=== PATIENT | male | born 1955 | race Caucasian/White ===

== ENCOUNTER → 2016-11-20 | Day surgery (SDC) | payer OTHER ==
[2016-11-17 08:52] VITALS: Ht 172.7 cm; Wt 90.9 kg
[~2016-11-20] VITALS: Ht 172.7 cm; Wt 90.9 kg
[~2016-11-20] MED LIST: ASPI81TA28 PO; ATOR10TA88 PO; GLC/500 PO; LIDOCAINE HCL 2% 2 ML VIAL (20MG/ML) ONE; MIDAZOLAM HCL 1 MG/ML 2ML VIAL ONE; OMEP40CA41 PO; PROPOFOL IV EMULSION 10 MG/ML 20 ML VIAL IV ONE; QUET1TAB34 PO; SODIUM CHLORIDE 0.9% 500ML 500 ML IV ONE
--- NOTE | 2016-11-20 13:03 | Endo History and Physical ---
History & Physical Date of Service: Nov 20, 2016. Chief Complaint: RUQ PAIN, RECTAL BLEEDING Referring Physician: DR. EATON History of Present Illness RUQ pain; rectal bleeding Past Medical History Anxiety, Other, Depression Past Surgical History Hx Cardiac Surgery: No Hx Internal Defibrillator: No Hx Pacemaker: No Hx Abdominal Surgery: Yes (LT/RT INGUINAL HERNIA REPAIR) Hx of Implantable Prosthesis: No Hx Post-Op Nausea and Vomiting: No Hx Cancer Surgery: No Hx Thoracic Surgery: No Hx Orthopedic: No Hx Urinary Tract Surgery: No Family History None Social History Smoking Status: Never Smoker Hx Substance Use: No Hx Alcohol Use: No Allergies Coded Allergies: Molds & Smuts (Verified Allergy, Unknown, ITCHY EYES, 11/20/16) NO KNOWN DRUG ALLERGIES (Verified Allergy, Unknown, ., 11/20/16) Current Medications Reported Home Medications Medications Dose Route/Sig Max Daily Dose Days Date Category Dose Instructions Aspirin Ec (Aspirin) 81 Mg Tab 81 Mg PO DAILY 11/17/16 Reported HAS NOT STARTED MEDICATION YET - GOING TO START FOR HEART HEALTH Prilosec (Omeprazole) 40 Mg Cap 40 Mg PO QAM 11/17/16 Reported Lipitor (Atorvastatin Calcium) 10 Mg Tab 10 Mg PO QAM 11/17/16 Reported Seroquel (Quetiapine Fumarate) 100 Mg Tab 100 Mg PO TID 11/17/16 Reported Glucophage (Metformin Hcl) 500 Mg Tab 500 Mg PO BID 11/17/16 Reported Vital Signs Weight (Kilograms): 90.91 Height (Feet): 5 Height (Inches): 8 Date Time Temp Pulse Resp B/P (MAP) Pulse Ox O2 Delivery O2 Flow Rate FiO2 11/20/16 12:41 36.7 96 18 148/108 (121) 95 Room Air Physical Exam AAOx3 Nls1s2 Lungs CTA Abd soft mild tender rt sided without rebound or guarding Assessment and Plan EGD/colon
--- NOTE | 2016-11-20 13:34 | Discharge Instructions ---
Endoscopy Patient Instructions Date / Procedure(s) Performed Nov 20, 2016. Colonoscopy, EGD Allergy Information Coded Allergies: Molds & Smuts (Verified Allergy, Unknown, ITCHY EYES, 11/20/16) NO KNOWN DRUG ALLERGIES (Verified Allergy, Unknown, ., 11/20/16) Discharge Date / Findings Nov 20, 2016. 1) HH 2) polyp; diverticulosis; hemorrhoid Medication Instructions Stopped Medication(s): METFORMIN LAST DOSE Thursday11/17/16 Restart Stopped Medication(s): Reported Home Medications Medications Dose Route/Sig Max Daily Dose Days Date Category Dose Instructions Aspirin Ec (Aspirin) 81 Mg Tab 81 Mg PO DAILY 11/17/16 Reported HAS NOT STARTED MEDICATION YET - GOING TO START FOR HEART HEALTH Prilosec (Omeprazole) 40 Mg Cap 40 Mg PO QAM 11/17/16 Reported Lipitor (Atorvastatin Calcium) 10 Mg Tab 10 Mg PO QAM 11/17/16 Reported Seroquel (Quetiapine Fumarate) 100 Mg Tab 100 Mg PO TID 11/17/16 Reported Glucophage (Metformin Hcl) 500 Mg Tab 500 Mg PO BID 11/17/16 Reported Reported Home Medications Medications Dose Route/Sig Max Daily Dose Days Date Category Dose Instructions Aspirin Ec (Aspirin) 81 Mg Tab 81 Mg PO DAILY 11/17/16 Reported HAS NOT STARTED MEDICATION YET - GOING TO START FOR HEART HEALTH Prilosec (Omeprazole) 40 Mg Cap 40 Mg PO QAM 11/17/16 Reported Lipitor (Atorvastatin Calcium) 10 Mg Tab 10 Mg PO QAM 11/17/16 Reported Seroquel (Quetiapine Fumarate) 100 Mg Tab 100 Mg PO TID 11/17/16 Reported Glucophage (Metformin Hcl) 500 Mg Tab 500 Mg PO BID 11/17/16 Reported Provider Instructions Activity Restrictions - No exercising or heavy lifting for 24 hours. - Do not drink alcohol the day of the procedure. - Do not drive a car or operate machinery until the day after the procedure. - Do not make any important decisions or sign important papers in 24 hours after the procedure. Following Day: - Return to full activity which may include returning to work/school. Diet Start your diet with liquids and light foods (jello, soup, juice, toast). Then eat your usual diet if not nauseated. Treatment For Common After Affects For mild abdominal pain, bloating, or excessive gas: - Rest - Eat lightly - Lie on right side Follow-Up Information Follow-up with DR. EATON as scheduled Anesthesia Information What You Should Know You have had a procedure that required some medicine to reduce anxiety and discomfort. This treatment is called moderate sedation. After receiving the treatment, you may be sleepy, but you will be able to breathe on your own. The effects of the treatment may last for several hours. Follow these instructions along with Activity/Diet recommendations noted above: * Do NOT do anything where dizziness or clumsiness would be dangerous. * Rest quietly at home today, then you can be up and about tomorrow. * Have a responsible person stay with you the rest of today. * You may have had an I.V. today. If so, you may take the dressing off later today. Recommendations Call your doctor if: * Trouble breathing * Continuous vomiting for more than 24 hours * Temperature above 101 degrees * Severe abdominal pain or bloating * Pain not relieved by pain medicine ordered * There is increased drainage or redness from any incision * A large amount of rectal bleeding greater than 2-3 tablespoons. (If you had a polyp/s removed or have hemorrhoids, a small amount of blood - from the rectum is to be expected.) * You have any unanswered questions or concerns. IN THE EVENT OF A SERIOUS EMERGENCY, GO TO THE NEAREST EMERGENCY ROOM Your discharge instructions were prepared by provider Justo Hernandez. Patient Instructions Signature Page Allen Hernandez Patient (or Guardian) Signature/Date: I have read and understand the instructions given to me by my caregivers. Caregiver/RN/Doctor Signature/Date: The above-named patient and/or guardian has received patient instructions on this date. + Original Patient Signature Page (only) stays with chart. Please make copy for patient.
--- NOTE | 2016-11-20 13:50 | GI REPORT ---
Procedure Date: 11/20/2016 1:07 PM Procedure: Colonoscopy Indications: Screening for colorectal malignant neoplasm, Reprots intermittent painless rectal bleeding Medicines: Propofol per Anesthesia Complications: No immediate complications. Estimated blood loss: Minimal. Estimated Blood Loss: Estimated blood loss was minimal. Procedure: Pre-Anesthesia Assessment: - Prior to the procedure, a History and Physical was performed, and patient medications and allergies were reviewed. The patient's tolerance of previous anesthesia was also reviewed. The risks and benefits of the procedure and the sedation options and risks were discussed with the patient. All questions were answered, and informed consent was obtained. Prior Anticoagulants: The patient has taken no previous anticoagulant or antiplatelet agents. ASA Grade Assessment: III - A patient with severe systemic disease. After reviewing the risks and benefits, the patient was deemed in satisfactory condition to undergo the procedure. After I obtained informed consent, the scope was passed under direct vision. Throughout the procedure, the patient's blood pressure, pulse, and oxygen saturations were monitored continuously. The scope was introduced through the anus and advanced to the terminal ileum, with identification of the appendiceal orifice and IC valve. The colonoscopy was performed without difficulty. The patient tolerated the procedure well. The quality of the bowel preparation was good. Findings: The perianal and digital rectal examinations were normal. Pertinent negatives include normal sphincter tone, no palpable rectal lesions and no anal lesion or abnormality was detected. A 6 mm polyp was found in the transverse colon. The polyp was sessile. The polyp was removed with a cold snare. Resection and retrieval were complete. Estimated blood loss was minimal. Verification of patient identification for the specimen was done by the physician and electro mechanical technician using the patient's name and medical record number. A few small-mouthed diverticula were found in the entire colon. Non-bleeding internal hemorrhoids were found during retroflexion. The hemorrhoids were mild. The terminal ileum appeared normal. Impression: - One 6 mm polyp in the transverse colon, removed with a cold snare. Resected and retrieved. - Diverticulosis in the entire examined colon. - Non-bleeding internal hemorrhoids. - The examined portion of the ileum was normal. Recommendation: - Await pathology results. - Patient has a contact number available for emergencies. The signs and symptoms of potential delayed complications were discussed with the patient. Return to normal activities tomorrow. Written discharge instructions were provided to the patient. - Resume regular diet. - Continue present medications. - Await pathology results. - Repeat colonoscopy for surveillance based on pathology results. - Return to referring physician as previously scheduled. MD Justo Jade MD 11/20/2016 1:49:10 PM This report has been signed electronically. Note Initiated On: 11/20/2016 1:07 PM I attest to the content of the Intraoperative Record and orders documented therein, exceptions below
--- NOTE | 2016-11-20 13:57 | GI REPORT ---
Procedure Date: 11/20/2016 1:08 PM Procedure: Upper GI endoscopy Indications: Abdominal pain in the right upper quadrant Medicines: Propofol per Anesthesia Complications: No immediate complications. Estimated blood loss: Minimal. Estimated Blood Loss: Estimated blood loss was minimal. Procedure: Pre-Anesthesia Assessment: - Prior to the procedure, a History and Physical was performed, and patient medications and allergies were reviewed. The patient's tolerance of previous anesthesia was also reviewed. The risks and benefits of the procedure and the sedation options and risks were discussed with the patient. All questions were answered, and informed consent was obtained. Prior Anticoagulants: The patient has taken no previous anticoagulant or antiplatelet agents. ASA Grade Assessment: III - A patient with severe systemic disease. After reviewing the risks and benefits, the patient was deemed in satisfactory condition to undergo the procedure. After obtaining informed consent, the endoscope was passed under direct vision. Throughout the procedure, the patient's blood pressure, pulse, and oxygen saturations were monitored continuously. The scope was introduced through the mouth, and advanced to the mid-jejunum. The upper GI endoscopy was accomplished without difficulty. The patient tolerated the procedure well. Findings: The examined esophagus was normal. A small hiatus hernia was found. The proximal extent of the gastric folds (end of tubular esophagus) was 41 cm from the incisors. The hiatal narrowing was 43 cm from the incisors. The Z-line was 41 cm from the incisors. The entire examined stomach was normal. The gastric body and gastric antrum were normal. Biopsies were taken with a cold forceps for Helicobacter pylori testing. Verification of patient identification for the specimen was done by the physician and fresh foods technician using the patient's name and medical record number. The 2nd part of the duodenum was normal. Biopsies for histology were taken with a cold forceps for evaluation of celiac disease. Estimated blood loss was minimal. Verification of patient identification for the specimen was done by the physician and fresh foods technician using the patient's name and medical record number. The examined jejunum was normal. Biopsies were taken with a cold forceps for histology. Biopsies were taken with a cold forceps for histology. The cardia and gastric fundus were normal on retroflexion. Retained gastric contents are not identified on this exam. Impression: - Normal esophagus. - Small hiatus hernia. - Normal stomach. - Normal gastric body and antrum. Biopsied. - Normal 2nd part of the duodenum. Biopsied. - Normal examined jejunum. Biopsied. Recommendation: - Discharge patient to home (ambulatory). - Continue present medications. - Consider GB workup if not recently performed MD Justo Jade MD 11/20/2016 1:57:22 PM This report has been signed electronically. Note Initiated On: 11/20/2016 1:08 PM I attest to the content of the Intraoperative Record and orders documented therein, exceptions below
[2016-11-20 14:11] VITALS: BP 122/60; PULSE 83; O2SAT 97
--- NOTE | 2016-11-20 14:34 | Anesthesiology Progress Note ---
Anesthesia Post Op Note Date & Time Nov 20, 2016 at 14:34 Vital Signs Pain Intensity: 5 Vital Signs Past 12 Hours Date Time Temp Pulse Resp B/P (MAP) Pulse Ox O2 Delivery O2 Flow Rate FiO2 11/20/16 14:11 83 20 122/60 (80) 97 Room Air 11/20/16 13:55 88 20 128/92 (104) 98 Room Air 11/20/16 13:39 95 20 137/94 (108) 95 Room Air 11/20/16 12:41 36.7 96 18 148/108 (121) 95 Room Air Notes Mental Status: alert / awake / arousable, participated in evaluation Pt Amnestic to Procedure: Yes Nausea / Vomiting: adequately controlled Pain: adequately controlled Airway Patency, RR, SpO2: stable & adequate BP & HR: stable & adequate Hydration State: stable & adequate Anesthetic Complications: no major complications apparent
== END | disposition home or self-care (01) ==
LOC: C.GI 12:17
PROVIDERS: ATTEND Internal Medicine Gastroenterology
DX: R10.11 Right upper quadrant pain (principal); K62.5 Hemorrhage of anus and rectum; D12.3 Benign neoplasm of transverse colon; K44.9 Diaphragmatic hernia without obstruction or gangrene; K57.30 Diverticulosis of large intestine without perforation or abscess without bleeding; Z79.82 Long term (current) use of aspirin; I10 Essential (primary) hypertension; E78.5 Hyperlipidemia, unspecified; E11.9 Type 2 diabetes mellitus without complications; F41.9 Anxiety disorder, unspecified; Z79.84 Long term (current) use of oral hypoglycemic drugs

== ENCOUNTER → 2017-08-27 | Outpatient (CLI) | payer OTHER ==
[~2017-08-27] MED LIST changes: +ATOR10TA82 PO; -ATOR10TA88 PO; -LIDOCAINE HCL 2% 2 ML VIAL (20MG/ML) ONE; -MIDAZOLAM HCL 1 MG/ML 2ML VIAL ONE; -PROPOFOL IV EMULSION 10 MG/ML 20 ML VIAL IV ONE; -SODIUM CHLORIDE 0.9% 500ML 500 ML IV ONE
--- NOTE | 2017-08-27 14:59 | DIAGNOSTIC IMAGING REPORT ---
CHEST 2 VIEWS ROUTINE CLINICAL HISTORY: DYSPNEA dyspnea COMPARISON STUDY: 10/09/2015 FINDINGS: The bones soft tissues and hemidiaphragms are normal. The cardiomediastinal silhouette is normal. The lungs are clear. The pulmonary vasculature is normal. IMPRESSION: Negative chest. The above report was generated using voice recognition software. It may contain grammatical, syntax or spelling errors. Electronically signed by: Phani Beltran M.D. 08/27/2017 2:58 PM Dictated Date/Time: 08/27/2017 2:57 PM
== END | disposition home or self-care (01) ==
LOC: C.RAD 14:39
PROVIDERS: ATTEND Family Medicine
DX: R06.00 Dyspnea, unspecified (principal)

== ENCOUNTER → 2017-08-27 | Outpatient (CLI) | payer OTHER ==
--- NOTE | 2017-08-28 11:59 | PULMONARY FUNCTION TEST ---
Pre-bronchodilator spirometry is well within normal limits. There was no significant response to bronchodilator, but this should not preclude a therapeutic trial if clinically warranted. Lung volumes or diffusion capacity were not measured. Clinical correlation is needed.
== END | disposition home or self-care (01) ==
LOC: C.RC 13:58
PROVIDERS: ATTEND Family Medicine
DX: R06.00 Dyspnea, unspecified (principal)

== ENCOUNTER 2019-04-07 10:10 | Inpatient (IN) ==
[2019-04-07] MEDS ORDERED: SODIUM CHLORIDE 0.9% 1000ML 1,000 ML IV SCH (11:15)
[2019-04-07 11:29] LABS: Basophils # (auto) 0.06 K/uL (0-0.2); Basophils % (auto) 0.8 %; Eosinophils # (auto) 0.28 K/uL (0-0.5); Eosinophils % (auto) 3.8 %; Hematocrit (blood only) 43.4 % (42-52); Hemoglobin 15.7 g/dL (14.0-18.0); Immature Granulocytes # (auto) 0.04 K/uL (0.00-0.02); Immature Granulocytes % (auto) 0.5 %; Lymphocytes # (auto) 2.09 K/uL (1.2-3.4); Lymphocytes % (auto) 28.7 %; Mean Corpuscular Hemoglobin 32.2 pg (25-34); Mean Corpuscular Hgb Conc 36.2 g/dL (32-36); Mean Corpuscular Volume 88.9 fL (80-100); Mean Platelet Volume 10.6 fL (7.4-10.4); Monocytes # (auto) 0.48 K/uL (0.11-0.59); Monocytes % (auto) 6.6 %; Neutrophils # (auto) 4.34 K/uL (1.4-6.5); Neutrophils % (auto) 59.6 %; Platelet Count 216 K/uL (130-400); RDW Coefficient of Variation 13.2 % (11.5-14.5); RDW Standard Deviation 42.5 fL (36.4-46.3); Red Blood Count 4.88 M/uL (4.7-6.1); White Blood Count 7.29 K/uL (4.8-10.8)
--- NOTE | 2019-04-07 11:32 | CT Scan Report ---
CT head/brain wo con CLINICAL HISTORY: 63 years-old Male presenting with fall, dizzy, weak. TECHNIQUE: Multidetector CT imaging of the head was performed without the use of intravenous contrast . IV contrast: None. One or more dose lowering techniques were used consistent with the principles of ALARA (as low as reasonably achievable), including automatic exposure control, mA or kV adjustment t o individual patient size, and/or use of iterative reconstruction. COMPARISON: 09/14/2015. CT DOSE (mGy.cm): The estimated cumulative dose is 1041.11 mGy.cm. FINDINGS: Certified Technician Specialist topogram: Unremarkable. Ventricles and sulci normal in size. No hemorrhage. Brain parenchyma normal in appearance with preser latanya melo-white differentiation. No acute territorial infarct. No mass effect or midline shift. No ext ra-axial fluid collection. Paranasal sinuses and mastoid air cells clear. Calvarium intact. IMPRESSION: 1. No acute intracranial abnormality. Electronically signed by: Joel Blake M.D. 04/07/2019 11:31 AM
--- NOTE | 2019-04-07 11:36 | CT Scan Report ---
CT cervical spine wo con CT DOSE: HISTORY: Trauma. Pain. trauma TECHNIQUE: Multiaxial CT images of the cervical spine were performed and reformatted in the sagittal and coronal plane without the use of contrast. A dose lowering technique was utilized adhering to th e principles of ALARA. COMPARISON: None. FINDINGS: No fractures. No subluxation. Prevertebral soft tissues and the C1-C2 interval are intact. No pneumothorax. Generalized degenerative disc change. Degenerative change of the vertebral endplates . No evidence for compression deformity. IMPRESSION: No fractures within the cervical spine. Significant degenerative change. The above report was generated using voice recognition software. It may contain grammatical, syntax or spelling errors. Electronically signed by: Phani Beltran M.D. 04/07/2019 11:35 AM
[2019-04-07 11:48] LABS: Acetaminophen < 2 ug/ml (10-30); Salicylate < 1.7 mg/dl (2.8-20)
--- NOTE | 2019-04-07 11:59 | XRay Report ---
XR chest 1V portable CLINICAL HISTORY: trauma trauma. Pain. COMPARISON STUDY: 10/09/2015 FINDINGS: The bones soft tissues and hemidiaphragms are normal. The cardiomediastinal silhouette is n ormal. The lungs are clear. The pulmonary vasculature is normal. IMPRESSION: Negative chest. The above report was generated using voice recognition software. It may contain grammatical, syntax or spelling errors. Electronically signed by: Phani Beltran M.D. 04/07/2019 11:58 AM
--- NOTE | 2019-04-07 12:00 | XRay Report ---
XR knee RT 3V CLINICAL HISTORY: trauma pain COMPARISON: None. DISCUSSION: The bones and joint spaces appear intact. There is no evidence of fracture, dislocation o r bony disease. There is no evidence for soft tissue swelling. IMPRESSION: Negative study. The above report was generated using voice recognition software. It may contain grammatical, syntax or spelling errors. Electronically signed by: Phani Beltran M.D. 04/07/2019 11:59 AM
[2019-04-07 12:01] LABS: Albumin Level 3.3 gm/dl (3.4-5.0); BUN Creatinine Ratio 17.2 (10-20); Bilirubin,Total 0.5 mg/dl (0.2-1); Calcium 9.6 mg/dl (8.5-10.1); Creatinine Clr Calc Pharmacy 72.7 ml/min; Est GFR (African American) 84.2; Est GFR (Non-African American) 72.7; Globulin 3.4 gm/dl (2.5-4.0); Potassium 4.5 mmol/L (3.5-5.1); Thyroid Stimulating Hormone 0.621 uIu/ml (0.300-4.500); Total Protein 6.7 gm/dl (6.4-8.2)
--- NOTE | 2019-04-07 12:01 | XRay Report ---
XR pelvis 1-2V routine CLINICAL HISTORY: trauma pain COMPARISON: None. DISCUSSION: The bones and joint spaces appear intact. There is no evidence of fracture, dislocation o r bony disease. There is no evidence for soft tissue swelling. IMPRESSION: Negative study. The above report was generated using voice recognition software. It may contain grammatical, syntax or spelling errors. Electronically signed by: Phani Beltran M.D. 04/07/2019 11:59 AM
[2019-04-07] MEDS ORDERED: NovoLIN-R INSULIN PER UNIT CHARGE SC STA (12:14)
[2019-04-07 12:57] LABS: Appearance Urine Turbid (Clear); Bacteria Urine Automated Negative (Negative); Bilirubin Urine Negative (Negative); Blood Urine Negative (Negative); Cast Urine Automated 0 /lpf (0-5); Color Urine Yellow; Epithelial Cell Urine Auto 0-5 /lpf (0-5); Glucose Urine UA 3+ (Negative); Ketones Urine Negative (Negative); Leukocyte Esterase Urine Negative (Negative); Nitrite Urine Negative (Negative); Protein Urine Negative (Negative); RBC Urine Automated 0-4 /hpf (0-4); Specific Gravity Urine 1.026 (1.000-1.030); Urobilinogen Urine Negative (Negative)
[2019-04-07 13:24] LABS: Amphetamines+Metham, Urine Neg (Neg); Barbiturates, Urine Neg (Neg); Benzodiazepine, Urine Pos (Neg); Cocaine, Urine Neg (Neg); MDMA (Ecstacy), Urine Neg (Neg); Methadone, Urine Neg (Neg); Opiate, Urine Neg (Neg); Phencyclidine, Urine Neg (Neg)
[2019-04-07] MEDS ORDERED: clonazePAM 1 MG TAB PO STA (15:34)
[2019-04-07 16:27] LABS: NT Pro B Type Natriuretic Pept 25 pg/ml (0-900); Troponin I < 0.015 ng/ml (0-0.045)
--- NOTE | 2019-04-07 16:35 | Emergency Department Note ---
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 size. No hemorrhage. Brain parenchyma normal in appearance with preserved melo-white differentiation. No acute territorial infarct. No mass effect or midline shift. No extra-axial fluid collection. Paranasal sinuses and mastoid air cells clear. Calvarium intact. IMPRESSION: 1. No acute intracranial abnormality. Electronically signed by: Joel Blake M.D. 04/07/2019 11:[address] cervical spine wo con CT DOSE: HISTORY: Trauma. Pain. trauma TECHNIQUE: Multiaxial CT images of the cervical spine were performed and reformatted in the sagittal and coronal plane without the use of contrast. A dose lowering technique was utilized adhering to the principles of ALARA. COMPARISON: None. FINDINGS: No fractures. No subluxation. Prevertebral soft tissues and the C1-C2 interval are intact. No pneumothorax. Generalized degenerative disc change. Degenerative change of the vertebral endplates. No evidence for compression deformity. IMPRESSION: No fractures within the cervical spine. Significant degenerative change. The above report was generated using voice recognition software. It may contain grammatical, syntax or spelling errors. Electronically signed by: Phani Beltran M.D. 04/07/2019 11:35 AM ECG Data Attestation: I personally reviewed and interpreted this ECG as follows: Indication: + toxicologic Rate (beats per minute): 84 Rhythm: + normal sinus ECG Intervals/blocks: + Normal QRS, + Normal QT, + Normal ID and + Normal QT-c ECG [place]: + Left axis deviation ECG ST segments: no ST depression and no ST elevation ECG Findings: no PACs and no PVCs Blood Pressure Blood Pressure Findings: Elevated blood pressure Blood Pressure Disposition: Referred to patients primary care provider NIK Narrative Pt here with story highly suspicious for ongoing bzd abuse. Pt initially appearing somnolent and now appearing to begin to have bzd withdrawal. Psych case management associate evaluated and inquired if psychiatrist was available upstairs for additional medical suggestions to safely discharge and avoid admission for withdrawal symptoms. EMILI upstairs recommended medical admission and starting klo nopin. Discussed with hospitalist. No evidence of other cardiac or neuro etiology of symptoms. No evidence of trauma despite initial report of a fall while taking xanax. Impression & Plan Anxiety, Benzodiazepine abuse, Benzodiazepine withdrawal Discharge Plan Visit Data *Final* Discharge Date/Time: 04/07/19 21:48 Chief Complaint: Overdose (Accidental) Stated Complaint: lethargic ED Provider: Caroline Urban Discharge Problem: Anxiety, Benzodiazepine abuse, Benzodiazepine withdrawal Patient Disposition: Admitted As Inpatient Discharge Instructions Interventions: ED Discharge Assessment Last Done: 04/07/19 21:48 Discharge Problem: Benzodiazepine withdrawal Qualifiers: Complication of substance-induced condition: uncomplicated Qualified Code(s): F13.230 - Sedative, hypnotic or anxiolytic dependence with withdrawal, uncomplicated The scribe's documentation has been prepared under my direction and personally reviewed by me in its entirety. I confirm that the note above accurately reflects all work, treatment, procedures, and medical decision making performed by me.
[2019-04-07] MEDS ORDERED: clonazePAM 0.5 MG TAB PO STA (18:23)
[2019-04-07] MEDS ORDERED: MAGNESIUM HYDROXIDE SUSP 30 ML UDC PO PRN (22:44)
[2019-04-07] MEDS ORDERED: CARBOHYDRATES FOR HYPOGLYCEMIA PO PRN (22:44)
[2019-04-07] MEDS ORDERED: ALUMINUM/MAGNESIUM SUSP 30 ML UDC PO PRN (22:44)
[2019-04-07] MEDS ORDERED: ONDANSETRON INJ 2 MG/ML 2 ML VIAL IV PRN (22:44)
[2019-04-07] MEDS ORDERED: GLUCOSE 10 TABS/TUBE PO PRN (22:44)
[2019-04-07] MEDS ORDERED: GLUCOSE 40% GEL 15 GM TUBE PO PRN (22:44)
[2019-04-07] MEDS ORDERED: DEXTROSE 50% 50 ML SYRINGE IV PRN (22:44)
[2019-04-07] MEDS ORDERED: GLUCAGON FOR INJ 1 MG VIAL SQ PRN (22:44)
[2019-04-07] MEDS ORDERED: GABAPENTIN 800MG ALCOHOL WITHDRAWAL LOAD PO STA (22:44)
[2019-04-07] MEDS: NSS + 20MEQ KCL 20 MEQ/1,000 ML BAG IV SCH (22:50)
[2019-04-07] MEDS ORDERED: GABAPENTIN 400 MG CAP PO ONE (23:00)
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
[2019-04-08] MEDS ORDERED: HALOPERIDOL LACTATE 5 MG/ML 1 ML VIAL IM STA (01:40)
[2019-04-08] MEDS ORDERED: cloNIDine HCL 0.1 MG TAB PO ONE (02:31)
[2019-04-08] MEDS: NSS + 20MEQ KCL 20 MEQ/1,000 ML BAG IV SCH ×2 (05:19→12:58)
[2019-04-08] MEDS: GABAPENTIN 400 MG CAP PO SCH ×3 (05:21→23:01)
[2019-04-08 06:07] LABS: Estimated Average Glucose 255 mg/dl; Hemoglobin A1C 10.5 % (4.5-5.6)
[2019-04-08] MEDS: cloNIDine HCL 0.1 MG TAB PO SCH ×2 (08:49→20:59)
[2019-04-08] MEDS: INSULIN ASPART 100 UNITS/ML 3 ML PEN SC SCH ×4 (09:23→21:00)
--- NOTE | 2019-04-08 09:24 | Hospitalist Progress Note ---
Date of Service April 08, 2019 Assessment & Plan (1) Benzodiazepine dependence: 63 yoM with PMH DM2 and benzodiazepine abuse who presented to the ED for benzo overdose. 1) Benzodiazepine Abuse + Withdrawal - AWSS protocol - Gabapentin Taper in place for withdrawal symptoms - Psychiatry onboard; appreciate recommendations regarding dosing of alternate anxiolytic agent (seroquel vs. clonidine?). - spot dose of 50 mg Seroquel today and 0.1 mg clonidine BID for anxiety vs. benzo withdrawal 2) DM2 - received 8 units regular insulin in ED - SSI protocol on unit - started 8 units of insulin glargine at 9:30 am after AM sugar was in 300s; adjusted to 12 units for nighttime dose with continued rise in sugars - A1C 10.5, 3+ glucose in urine - will recalculate insulin reqs tomorrow for optimal titration FEN/GI: DM2 diet DVT PPX: SCDs Dispo: tele Code status: full code (2) Anxiety: (3) Diabetes: Supervising Physician Co-Signing Physician Notes I personally examined the patient and verified all machado points of history and exam, discussed case, and agree with decision making with Dr Pineda. Feeling very anxious. Also notes burning in his feet for the last few months. Extensive discussions and he expressed good understanding. Vitals noted, in general he is awake and alert laying in bed very still appearing somewhat anxious but no physical distress. Breathing is unlabored no accessory muscle use good effort. Skin shows no rashes no pallor or icterus. No focal neuro deficits. Intractable anxiety and benzodiazepine ingestionswe did extensive discussion about management of his anxiety, and how benzodiazepines because of the fact that they create physical dependency will often create a perception of worsening anxiety when 1 is in a withdrawal cycle, often leading to a confusing clinical picture where it can be difficult to discern what is truly anxiety versus what is simply physical dependency on benzodiazepines. In this respect we will try to get him off of benzos fairly quickly, but obviously do not want him to suffer needlessly with withdrawal, therefore we will do spot dosing of a longer acting benzodiazepine as discussed with psychiatry. Agree with the idea of Seroquel for his very refractory difficult to treat anxiety. Hopefully once he is more settled we can also start to work on lifestyle measures and or counseling. New onset type 2 diabetesinsulin management for now. He has had burning in his feet for the last 4 months, but hopefully it is just diabetic related nerve irritation not true neuropathy given that his A1c is about 5 years ago were in a nondiabetic range. Gabapentin could be helpful in this respect as well as possibly with his anxiety, will give 300 mg at bedtime for now. Titrate insul ins for better sugar control, we started to discuss the critical role of lifestyle in the causes and management of type 2 diabetes, we will discuss this further as the days progressed, and depending on his lifestyle and his ability to make changes in it, we may be able to go with orals instead of insulins at time of discharge as long as he has close follow-up. Otherwise as above, ambulation for DVT prophylaxis. Subjective Lethargic this morning. Complaining of generalized pain and weakness all over his body. Attests to occasional chest pain with taking deep breaths, no squeezing pressure or stabbing pain. Unable to articulate well why he feels short of breath. Review of Systems Review of Systems: ROS limited due to patient's lethargy decreased ability to pay attention Physical Exam Respiratory: normal respiratory effort, lungs clear to auscultation Cardiovascular: RRR, no murmur, no edema Gastrointestinal (Abdomen): Percussion/Palpation: abdomen soft; abdomen nontender Results & Data Vital Signs (Past 12 Hours) Vital Signs Temp Pulse Pulse Resp BP BP Pulse Ox 04/08/19 04:00 36.8 C 82 19 95/78 L 97 04/08/19 02:40 81 16 153/78 H 96 04/08/19 02:30 79 2 L 99 04/08/19 02:20 80 2 L 96 04/08/19 02:10 77 12 97 04/08/19 02:00 99 H 17 98 04/08/19 01:50 84 22 97 04/08/19 01:40 81 3 L 96 04/08/19 01:30 88 18 98 04/08/19 01:20 83 0 L 98 04/08/19 01:10 78 0 L 96 04/08/19 01:00 81 21 100 04/08/19 00:58 82 18 155/91 H 99 04/08/19 00:50 85 7 L 97 04/08/19 00:40 87 23 97 04/08/19 00:30 73 10 L 97 04/08/19 00:20 73 7 L 92 04/08/19 00:10 75 31 H 98 04/08/19 00:00 75 19 100 04/07/19 23:55 76 39 H 148/101 H 99 04/07/19 23:50 81 28 H 100 04/07/19 23:40 81 24 99 04/07/19 23:30 81 29 H 99 04/07/19 23:20 82 36 H 100 04/07/19 23:10 79 31 H 100 04/07/19 23:00 36.5 C 88 20 100 04/07/19 22:44 36.5 C 81 29 H 178/100 H 99 04/07/19 21:52 36.6 C 81 24 166/99 H 100 04/07/19 21:48 88 172/98 H 97 04/08/19 04/08/19 04/08/19 Range/Units 08:54 08:52 01:00 WBC (4.8-10.8) K/uL RBC (4.7-6.1) M/uL Hgb (14.0-18.0) g/dL Hct (42-52) % MCV (80-100) fL MCH (25-34) pg MCHC (32-36) g/dL RDW Std Deviation (36.4-46.3) fL RDW Coeff of Morales (11.5-14.5) % Plt Count (130-400) K/uL MPV (7.4-10.4) fL Immature Gran % (Auto) % Neut % (Auto) % Lymph % (Auto) % [place] % (Auto) % Eos % (Auto) % Baso % (Auto) % Immature Gran # (Auto) (0.00-0.02) K/uL Neut # (Auto) (1.4-6.5) K/uL Lymph # (Auto) (1.2-3.4) K/uL [place] # (Auto) (0.11-0.59) K/uL Eos # (Auto) (0-0.5) K/uL Baso # (Auto) (0-0.2) K/uL Sodium (136-145) mmol/L Potassium (3.5-5.1) mmol/L Chloride (98-107) mmol/L Carbon Dioxide (21-32) mmol/L Anion Gap (3-11) BUN (7-18) mg/dl Creatinine (0.6-1.4) mg/dl Est Cr Clr Drug Dosing ml/min Est GFR ( Amer) Est GFR (Non-Af Amer) BUN/Creatinine Ratio (10-20) Glucose (70-99) mg/dl POC Glucose 331 H* 358 H* 219 H (70-99) Estimat Average Glucose mg/dl Hemoglobin A1c (4.5-5.6) % Calcium (8.5-10.1) mg/dl Total Bilirubin (0.2-1) mg/dl AST (15-37) U/L ALT (12-78) U/L Alkaline Phosphatase (45-117) U/L Troponin I (0-0.045) ng/ml NT-Pro-B Natriuret Pep (0-900) pg/ml Total Protein (6.4-8.2) gm/dl Albumin (3.4-5.0) gm/dl Globulin (2.5-4.0) gm/dl Albumin/Globulin Ratio (0.9-2) Folate (>5.38) ng/ml Beta-Hydroxybutyric Acd (0.2-2.81) mg/dl TSH (0.300-4.500) uIu/ml Urine Color Urine Appearance (Clear) Urine pH (4.5-7.5) Ur Specific [place] (1.000-1.030) Urine Protein (Negative) Urine Glucose (UA) (Negative) Urine Ketones (Negative) Urine Blood (Negative) Urine Nitrite (Negative) Urine Bilirubin (Negative) Urine Urobilinogen (Negative) Ur Leukocyte Esterase (Negative) Urine WBC (Auto) (0-5) /hpf Urine RBC (Auto) (0-4) /hpf U Hyaline Cast (Auto) (0-5) /lpf U Epithel Cells (Auto) (0-5) /lpf Urine Bacteria (Auto) (Negative) Nasal Screen MRSA (PCR) (Negative) Salicylates (2.8-20) mg/dl Urine Opiates Screen (Neg) Ur Methadone, Qual (Neg) Acetaminophen (10-30) ug/ml Urine Barbiturates (Neg) Ur Phencyclidine (PCP) (Neg) U Amphetamin/Meth Scrn (Neg) MDMA (Ecstasy) Screen (Neg) U OH-Alprazolam Confrm U Benzodiazepines Scrn (Neg) 7-Amino Clonazepam Ur Nordiazepam Confirm U OH-ethylflurazepam U Lorazepam Cnf GC/MS U Oxazepam Confm GC/MS Ur Temazepam Confirm U OH-Triazolam Confirm U OH-Midazolam Confirm Ur Cocaine Metabolite (Neg) U Marijuana (THC) Screen (Neg) Drug Screen Comment Ethyl Alcohol mg/dL (0-3) mg/dl 04/07/19 04/07/19 04/07/19 Range/Units 23:05 22:30 21:30 WBC (4.8-10.8) K/uL RBC (4.7-6.1) M/uL Hgb (14.0-18.0) g/dL Hct (42-52) % MCV (80-100) fL MCH (25-34) pg MCHC (32-36) g/dL RDW Std Deviation (36.4-46.3) fL RDW Coeff of Morales (11.5-14.5) % Plt Count (130-400) K/uL MPV (7.4-10.4) fL Immature Gran % (Auto) % Neut % (Auto) % Lymph % (Auto) % [place] % (Auto) % Eos % (Auto) % Baso % (Auto) % Immature Gran # (Auto) (0.00-0.02) K/uL Neut # (Auto) (1.4-6.5) K/uL Lymph # (Auto) (1.2-3.4) K/uL [place] # (Auto) (0.11-0.59) K/uL Eos # (Auto) (0-0.5) K/uL Baso # (Auto) (0-0.2) K/uL Sodium (136-145) mmol/L Potassium (3.5-5.1) mmol/L Chloride (98-107) mmol/L Carbon Dioxide (21-32) mmol/L Anion Gap (3-11) BUN (7-18) mg/dl Creatinine (0.6-1.4) mg/dl Est Cr Clr Drug Dosing ml/min Est GFR ( Amer) Est GFR (Non-Af Amer) BUN/Creatinine Ratio (10-20) Glucose (70-99) mg/dl POC Glucose 296 H (70-99) Estimat Average Glucose mg/dl Hemoglobin A1c (4.5-5.6) % Calcium (8.5-10.1) mg/dl Total Bilirubin (0.2-1) mg/dl AST (15-37) U/L ALT (12-78) U/L Alkaline Phosphatase (45-117) U/L Troponin I (0-0.045) ng/ml NT-Pro-B Natriuret Pep (0-900) pg/ml Total Protein (6.4-8.2) gm/dl Albumin (3.4-5.0) gm/dl Globulin (2.5-4.0) gm/dl Albumin/Globulin Ratio (0.9-2) Folate 9.25 (>5.38) ng/ml Beta-Hydroxybutyric Acd (0.2-2.81) mg/dl TSH (0.300-4.500) uIu/ml Urine Color Urine Appearance (Clear) Urine pH (4.5-7.5) Ur Specific [place] (1.000-1.030) Urine Protein (Negative) Urine Glucose (UA) (Negative) Urine Ketones (Negative) Urine Blood (Negative) Urine Nitrite (Negative) Urine Bilirubin (Negative) Urine Urobilinogen (Negative) Ur Leukocyte Esterase (Negative) Urine WBC (Auto) (0-5) /hpf Urine RBC (Auto) (0-4) /hpf U Hyaline Cast (Auto) (0-5) /lpf U Epithel Cells (Auto) (0-5) /lpf Urine Bacteria (Auto) (Negative) Nasal Screen MRSA (PCR) Negative (Negative) Salicylates (2.8-20) mg/dl Urine Opiates Screen (Neg) Ur Methadone, Qual (Neg) Acetaminophen (10-30) ug/ml Urine Barbiturates (Neg) Ur Phencyclidine (PCP) (Neg) U Amphetamin/Meth Scrn (Neg) MDMA (Ecstasy) Screen (Neg) U OH-Alprazolam Confrm U Benzodiazepines Scrn (Neg) 7-Amino Clonazepam Ur Nordiazepam Confirm U OH-ethylflurazepam U Lorazepam Cnf GC/MS U Oxazepam Confm GC/MS Ur Temazepam Confirm U OH-Triazolam Confirm U OH-Midazolam Confirm Ur Cocaine Metabolite (Neg) U Marijuana (THC) Screen (Neg) Drug Screen Comment Ethyl Alcohol mg/dL (0-3) mg/dl 04/07/19 04/07/19 04/07/19 Range/Units 13:36 12:45 12:45 WBC (4.8-10.8) K/uL RBC (4.7-6.1) M/uL Hgb (14.0-18.0) g/dL Hct (42-52) % MCV (80-100) fL MCH (25-34) pg MCHC (32-36) g/dL RDW Std Deviation (36.4-46.3) fL RDW Coeff of Morales (11.5-14.5) % Plt Count (130-400) K/uL MPV (7.4-10.4) fL Immature Gran % (Auto) % Neut % (Auto) % Lymph % (Auto) % [place] % (Auto) % Eos % (Auto) % Baso % (Auto) % Immature Gran # (Auto) (0.00-0.02) K/uL Neut # (Auto) (1.4-6.5) K/uL Lymph # (Auto) (1.2-3.4) K/uL [place] # (Auto) (0.11-0.59) K/uL Eos # (Auto) (0-0.5) K/uL Baso # (Auto) (0-0.2) K/uL Sodium (136-145) mmol/L Potassium (3.5-5.1) mmol/L Chloride (98-107) mmol/L Carbon Dioxide (21-32) mmol/L Anion Gap (3-11) BUN (7-18) mg/dl Creatinine (0.6-1.4) mg/dl Est Cr Clr Drug Dosing ml/min Est GFR ( Amer) Est GFR (Non-Af Amer) BUN/Creatinine Ratio (10-20) Glucose (70-99) mg/dl POC Glucose 286 H (70-99) Estimat Average Glucose mg/dl Hemoglobin A1c (4.5-5.6) % Calcium (8.5-10.1) mg/dl Total Bilirubin (0.2-1) mg/dl AST (15-37) U/L ALT (12-78) U/L Alkaline Phosphatase (45-117) U/L Troponin I (0-0.045) ng/ml NT-Pro-B Natriuret Pep (0-900) pg/ml Total Protein (6.4-8.2) gm/dl Albumin (3.4-5.0) gm/dl Globulin (2.5-4.0) gm/dl Albumin/Globulin Ratio (0.9-2) Folate (>5.38) ng/ml Beta-Hydroxybutyric Acd (0.2-2.81) mg/dl TSH (0.300-4.500) uIu/ml Urine Color Urine Appearance (Clear) Urine pH (4.5-7.5) Ur Specific [place] (1.000-1.030) Urine Protein (Negative) Urine Glucose (UA) (Negative) Urine Ketones (Negative) Urine Blood (Negative) Urine Nitrite (Negative) Urine Bilirubin (Negative) Urine Urobilinogen (Negative) Ur Leukocyte Esterase (Negative) Urine WBC (Auto) (0-5) /hpf Urine RBC (Auto) (0-4) /hpf U Hyaline Cast (Auto) (0-5) /lpf U Epithel Cells (Auto) (0-5) /lpf Urine Bacteria (Auto) (Negative) Nasal Screen MRSA (PCR) (Negative) Salicylates (2.8-20) mg/dl Urine Opiates Screen Neg (Neg) Ur Methadone, Qual Neg (Neg) Acetaminophen (10-30) ug/ml Urine Barbiturates Neg (Neg) Ur Phencyclidine (PCP) Neg (Neg) U Amphetamin/Meth Scrn Neg (Neg) MDMA (Ecstasy) Screen Neg (Neg) U OH-Alprazolam Confrm Pending U Benzodiazepines Scrn Pos H (Neg) 7-Amino Clonazepam Pending Ur Nordiazepam Confirm Pending U OH-ethylflurazepam Pending U Lorazepam Cnf GC/MS Pending U Oxazepam Confm GC/MS Pending Ur Temazepam Confirm Pending U OH-Triazolam Confirm Pending U OH-Midazolam Confirm Pending Ur Cocaine Metabolite Neg (Neg) U Marijuana (THC) Screen Neg (Neg) Drug Screen Comment Pending Ethyl Alcohol mg/dL (0-3) mg/dl 04/07/19 04/07/19 04/07/19 Range/Units 12:45 11:13 11:13 WBC (4.8-10.8) K/uL RBC (4.7-6.1) M/uL Hgb (14.0-18.0) g/dL Hct (42-52) % MCV (80-100) fL MCH (25-34) pg MCHC (32-36) g/dL RDW Std Deviation (36.4-46.3) fL RDW Coeff of Morales (11.5-14.5) % Plt Count (130-400) K/uL MPV (7.4-10.4) fL Immature Gran % (Auto) % Neut % (Auto) % Lymph % (Auto) % [place] % (Auto) % Eos % (Auto) % Baso % (Auto) % Immature Gran # (Auto) (0.00-0.02) K/uL Neut # (Auto) (1.4-6.5) K/uL Lymph # (Auto) (1.2-3.4) K/uL [place] # (Auto) (0.11-0.59) K/uL Eos # (Auto) (0-0.5) K/uL Baso # (Auto) (0-0.2) K/uL Sodium (136-145) mmol/L Potassium (3.5-5.1) mmol/L Chloride (98-107) mmol/L Carbon Dioxide (21-32) mmol/L Anion Gap (3-11) BUN (7-18) mg/dl Creatinine (0.6-1.4) mg/dl Est Cr Clr Drug Dosing ml/min Est GFR ( Amer) Est GFR (Non-Af Amer) BUN/Creatinine Ratio (10-20) Glucose (70-99) mg/dl POC Glucose (70-99) Estimat Average Glucose 255 mg/dl Hemoglobin A1c 10.5 H (4.5-5.6) % Calcium (8.5-10.1) mg/dl Total Bilirubin (0.2-1) mg/dl AST (15-37) U/L ALT (12-78) U/L Alkaline Phosphatase (45-117) U/L Troponin I < 0.015 (0-0.045) ng/ml NT-Pro-B Natriuret Pep 25 (0-900) pg/ml Total Protein (6.4-8.2) gm/dl Albumin (3.4-5.0) gm/dl Globulin (2.5-4.0) gm/dl Albumin/Globulin Ratio (0.9-2) Folate (>5.38) ng/ml Beta-Hydroxybutyric Acd (0.2-2.81) mg/dl TSH (0.300-4.500) uIu/ml Urine Color Yellow Urine Appearance Turbid A (Clear) Urine pH 7.0 (4.5-7.5) Ur Specific [place] 1.026 (1.000-1.030) Urine Protein Negative (Negative) Urine Glucose (UA) 3+ H (Negative) Urine Ketones Negative (Negative) Urine Blood Negative (Negative) Urine Nitrite Negative (Negative) Urine Bilirubin Negative (Negative) Urine Urobilinogen Negative (Negative) Ur Leukocyte Esterase Negative (Negative) Urine WBC (Auto) 1-5 (0-5) /hpf Urine RBC (Auto) 0-4 (0-4) /hpf U Hyaline Cast (Auto) 0 (0-5) /lpf U Epithel Cells (Auto) 0-5 (0-5) /lpf Urine Bacteria (Auto) Negative (Negative) Nasal Screen MRSA (PCR) (Negative) Salicylates (2.8-20) mg/dl Urine Opiates Screen (Neg) Ur Methadone, Qual (Neg) Acetaminophen (10-30) ug/ml Urine Barbiturates (Neg) Ur Phencyclidine (PCP) (Neg) U Amphetamin/Meth Scrn (Neg) MDMA (Ecstasy) Screen (Neg) U OH-Alprazolam Confrm U Benzodiazepines Scrn (Neg) 7-Amino Clonazepam Ur Nordiazepam Confirm U OH-ethylflurazepam U Lorazepam Cnf GC/MS U Oxazepam Confm GC/MS Ur Temazepam Confirm U OH-Triazolam Confirm U OH-Midazolam Confirm Ur Cocaine Metabolite (Neg) U Marijuana (THC) Screen (Neg) Drug Screen Comment Ethyl Alcohol mg/dL (0-3) mg/dl 04/07/19 04/07/19 04/07/19 Range/Units 11:13 11:13 11:13 WBC (4.8-10.8) K/uL RBC (4.7-6.1) M/uL Hgb (14.0-18.0) g/dL Hct (42-52) % MCV (80-100) fL MCH (25-34) pg MCHC (32-36) g/dL RDW Std Deviation (36.4-46.3) fL RDW Coeff of Morales (11.5-14.5) % Plt Count (130-400) K/uL MPV (7.4-10.4) fL Immature Gran % (Auto) % Neut % (Auto) % Lymph % (Auto) % [place] % (Auto) % Eos % (Auto) % Baso % (Auto) % Immature Gran # (Auto) (0.00-0.02) K/uL Neut # (Auto) (1.4-6.5) K/uL Lymph # (Auto) (1.2-3.4) K/uL [place] # (Auto) (0.11-0.59) K/uL Eos # (Auto) (0-0.5) K/uL Baso # (Auto) (0-0.2) K/uL Sodium 135 L (136-145) mmol/L Potassium 4.5 (3.5-5.1) mmol/L Chloride 101 (98-107) mmol/L Carbon Dioxide 25 (21-32) mmol/L Anion Gap 9.0 (3-11) BUN 19 H (7-18) mg/dl Creatinine 1.08 (0.6-1.4) mg/dl Est Cr Clr Drug Dosing 72.7 ml/min Est GFR ( Amer) 84.2 Est GFR (Non-Af Amer) 72.7 BUN/Creatinine Ratio 17.2 (10-20) Glucose 368 H* (70-99) mg/dl POC Glucose (70-99) Estimat Average Glucose mg/dl Hemoglobin A1c (4.5-5.6) % Calcium 9.6 (8.5-10.1) mg/dl Total Bilirubin 0.5 (0.2-1) mg/dl AST 11 L (15-37) U/L ALT 27 (12-78) U/L Alkaline Phosphatase 95 (45-117) U/L Troponin I (0-0.045) ng/ml NT-Pro-B Natriuret Pep (0-900) pg/ml Total Protein 6.7 (6.4-8.2) gm/dl Albumin 3.3 L (3.4-5.0) gm/dl Globulin 3.4 (2.5-4.0) gm/dl Albumin/Globulin Ratio 1.0 (0.9-2) Folate (>5.38) ng/ml Beta-Hydroxybutyric Acd (0.2-2.81) mg/dl TSH 0.621 (0.300-4.500) uIu/ml Urine Color Urine Appearance (Clear) Urine pH (4.5-7.5) Ur Specific [place] (1.000-1.030) Urine Protein (Negative) Urine Glucose (UA) (Negative) Urine Ketones (Negative) Urine Blood (Negative) Urine Nitrite (Negative) Urine Bilirubin (Negative) Urine Urobilinogen (Negative) Ur Leukocyte Esterase (Negative) Urine WBC (Auto) (0-5) /hpf Urine RBC (Auto) (0-4) /hpf U Hyaline Cast (Auto) (0-5) /lpf U Epithel Cells (Auto) (0-5) /lpf Urine Bacteria (Auto) (Negative) Nasal Screen MRSA (PCR) (Negative) Salicylates < 1.7 L (2.8-20) mg/dl Urine Opiates Screen (Neg) Ur Methadone, Qual (Neg) Acetaminophen < 2 L (10-30) ug/ml Urine Barbiturates (Neg) Ur Phencyclidine (PCP) (Neg) U Amphetamin/Meth Scrn (Neg) MDMA (Ecstasy) Screen (Neg) U OH-Alprazolam Confrm U Benzodiazepines Scrn (Neg) 7-Amino Clonazepam Ur Nordiazepam Confirm U OH-ethylflurazepam U Lorazepam Cnf GC/MS U Oxazepam Confm GC/MS Ur Temazepam Confirm U OH-Triazolam Confirm U OH-Midazolam Confirm Ur Cocaine Metabolite (Neg) U Marijuana (THC) Screen (Neg) Drug Screen Comment Ethyl Alcohol mg/dL < 3.0 (0-3) mg/dl 04/07/19 Range/Units 11:13 WBC 7.29 (4.8-10.8) K/uL RBC 4.88 (4.7-6.1) M/uL Hgb 15.7 (14.0-18.0) g/dL Hct 43.4 (42-52) % MCV 88.9 (80-100) fL MCH 32.2 (25-34) pg MCHC 36.2 H (32-36) g/dL RDW Std Deviation 42.5 (36.4-46.3) fL RDW Coeff of Morales 13.2 (11.5-14.5) % Plt Count 216 (130-400) K/uL MPV 10.6 H (7.4-10.4) fL Immature Gran % (Auto) 0.5 % Neut % (Auto) 59.6 % Lymph % (Auto) 28.7 % [place] % (Auto) 6.6 % Eos % (Auto) 3.8 % Baso % (Auto) 0.8 % Immature Gran # (Auto) 0.04 H (0.00-0.02) K/uL Neut # (Auto) 4.34 (1.4-6.5) K/uL Lymph # (Auto) 2.09 (1.2-3.4) K/uL [place] # (Auto) 0.48 (0.11-0.59) K/uL Eos # (Auto) 0.28 (0-0.5) K/uL Baso # (Auto) 0.06 (0-0.2) K/uL Sodium (136-145) mmol/L Potassium (3.5-5.1) mmol/L Chloride (98-107) mmol/L Carbon Dioxide (21-32) mmol/L Anion Gap (3-11) BUN (7-18) mg/dl Creatinine (0.6-1.4) mg/dl Est Cr Clr Drug Dosing ml/min Est GFR ( Amer) Est GFR (Non-Af Amer) BUN/Creatinine Ratio (10-20) Glucose (70-99) mg/dl POC Glucose (70-99) Estimat Average Glucose mg/dl Hemoglobin A1c (4.5-5.6) % Calcium (8.5-10.1) mg/dl Total Bilirubin (0.2-1) mg/dl AST (15-37) U/L ALT (12-78) U/L Alkaline Phosphatase (45-117) U/L Troponin I (0-0.045) ng/ml NT-Pro-B Natriuret Pep (0-900) pg/ml Total Protein (6.4-8.2) gm/dl Albumin (3.4-5.0) gm/dl Globulin (2.5-4.0) gm/dl Albumin/Globulin Ratio (0.9-2) Folate (>5.38) ng/ml Beta-Hydroxybutyric Acd (0.2-2.81) mg/dl TSH (0.300-4.500) uIu/ml Urine Color Urine Appearance (Clear) Urine pH (4.5-7.5) Ur Specific [place] (1.000-1.030) Urine Protein (Negative) Urine Glucose (UA) (Negative) Urine Ketones (Negative) Urine Blood (Negative) Urine Nitrite (Negative) Urine Bilirubin (Negative) Urine Urobilinogen (Negative) Ur Leukocyte Esterase (Negative) Urine WBC (Auto) (0-5) /hpf Urine RBC (Auto) (0-4) /hpf U Hyaline Cast (Auto) (0-5) /lpf U Epithel Cells (Auto) (0-5) /lpf Urine Bacteria (Auto) (Negative) Nasal Screen MRSA (PCR) (Negative) Salicylates (2.8-20) mg/dl Urine Opiates Screen (Neg) Ur Methadone, Qual (Neg) Acetaminophen (10-30) ug/ml Urine Barbiturates (Neg) Ur Phencyclidine (PCP) (Neg) U Amphetamin/Meth Scrn (Neg) MDMA (Ecstasy) Screen (Neg) U OH-Alprazolam Confrm U Benzodiazepines Scrn (Neg) 7-Amino Clonazepam Ur Nordiazepam Confirm U OH-ethylflurazepam U Lorazepam Cnf GC/MS U Oxazepam Confm GC/MS Ur Temazepam Confirm U OH-Triazolam Confirm U OH-Midazolam Confirm Ur Cocaine Metabolite (Neg) U Marijuana (THC) Screen (Neg) Drug Screen Comment Ethyl Alcohol mg/dL (0-3) mg/dl Resident Activity Tracking Resident Involvement: Resident Care Provided Care Provided: Adult Hospital Medicine
[2019-04-08] MEDS ORDERED: LANTUS PER UNIT CHARGE SQ ONE (09:30)
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
[2019-04-08] MEDS ORDERED: GLUCAGON FOR INJ 1 MG VIAL SQ PRN (15:33)
[2019-04-08] MEDS ORDERED: GLUCOSE 10 TABS/TUBE PO PRN (15:33)
[2019-04-08] MEDS ORDERED: GLUCOSE 40% GEL 15 GM TUBE PO PRN (15:33)
[2019-04-08] MEDS ORDERED: DEXTROSE 50% 50 ML SYRINGE IV PRN (15:33)
[2019-04-08] MEDS ORDERED: CARBOHYDRATES FOR HYPOGLYCEMIA PO PRN (15:33)
[2019-04-08] MEDS ORDERED: clonazePAM 0.5 MG TAB PO STA (15:52)
[2019-04-08] MEDS ORDERED: QUETIAPINE FUMARATE 25 MG TABLET PO ONE (16:00)
--- NOTE | 2019-04-08 18:46 | Billing Data ---
Date of Service April 08, 2019 Coding Level of Care Code 32121 Subseq Hosp Care Lvl 3
[2019-04-08] MEDS: GABAPENTIN 300 MG CAP PO SCH (20:59)
[2019-04-08] MEDS: QUETIAPINE FUMARATE 25 MG TABLET PO SCH (20:59)
[2019-04-08] MEDS ORDERED: INSULIN GLARGINE SOLOSTAR 100 UNITS/ML 3 ML PEN SC SCH (21:00)
[2019-04-08] MEDS: INSULIN GLARGINE SOLOSTAR 100 UNITS/ML 3 ML PEN SC SCH (21:19)
[2019-04-09] MEDS: NSS + 20MEQ KCL 20 MEQ/1,000 ML BAG IV SCH (01:41)
[2019-04-09] MEDS: GABAPENTIN 400 MG CAP PO SCH ×2 (05:48→13:39)
[2019-04-09 08:42] LABS: Chol HDL Ratio 6; Cholesterol 217 mg/dl (0-200); HDL Cholesterol 35 mg/dl; Triglycerides 435 mg/dl (0-150)
[2019-04-09] MEDS: INSULIN ASPART 100 UNITS/ML 3 ML PEN SC SCH ×4 (08:52→20:40)
[2019-04-09] MEDS: cloNIDine HCL 0.1 MG TAB PO SCH ×2 (08:53→20:10)
[2019-04-09] MEDS: INSULIN GLARGINE SOLOSTAR 100 UNITS/ML 3 ML PEN SC SCH ×2 (08:54→20:10)
[2019-04-09] MEDS: QUETIAPINE FUMARATE 25 MG TABLET PO SCH ×2 (08:54→20:11)
[2019-04-09] MEDS: MAGNESIUM HYDROXIDE SUSP 30 ML UDC PO SCH ×2 (10:34→20:11)
[2019-04-09] MEDS ORDERED: clonazePAM 0.5 MG TAB PO STA (17:00)
[2019-04-09] MEDS ORDERED: clonazePAM 0.5 MG TAB PO ONE (17:05)
--- NOTE | 2019-04-09 17:14 | Hospitalist Progress Note ---
Date of Service April 09, 2019 Assessment & Plan (1) Benzodiazepine dependence: 63 yoM with PMH anxiety and benzodiazepine abuse who presented to the ED for benzo overdose, found to have new onset type II diabetes mellitus. 1) Benzodiazepine Abuse + Withdrawal - AWSS protocol. Ordered 1 dose of 0.5mg clonazepam as patient was anxious on exam - Gabapentin Taper in place for withdrawal symptoms - continue clonidine 0.1mg BID - Psychiatry onboard, recommended starting Seroquel 25mg BID for anxiety 2) DM2 - A1C 10.5 on admission, 3+ glucose in urine - on review of POC glucose, increased basal insulin from 12 units to 15 units - carb ratio adjusted from 1:10 to 1:7 for tighter control of post-prandial sugars - carb consisted diet FEN/GI: DM2 diet DVT PPX: SCDs Dispo: med/surg Code status: full code (2) Anxiety: (3) Diabetes: Supervising Physician Co-Signing Physician Notes I personally examined the patient and verified all machado points of history and exam, discussed case, and agree with decision making with Dr Hernandez. Feeling anxious about IV pole beeping and about going home. Turned off IV, reassured patient that he would not be going home until he is doing better. After we discussed diabetes he was feeling quite anxious again.. Vitals noted, in general he is awake and alert laying in bed very still appearing somewhat anxious but no physical distress. Breathing is unlabored no accessory muscle use good effort. Skin shows no rashes no pallor or icterus. No focal neuro deficits. Intractable anxiety and benzodiazepine ingestionspreviously had extensive discussion about management of his anxiety, and how benzodiazepines because of the fact that they create physical dependency will often create a perception of worsening anxiety when one is in a withdrawal cycle, often leading to a confusing clinical picture where it can be difficult to discern what is truly anxiety versus what is simply physical dependency on benzodiazepines. In this respect we will try to get him off of benzos fairly quickly, but obviously do not want him to suffer needlessly with withdrawal, therefore we will do spot dosing of a longer acting benzodiazepine periodically. Starting trial of Seroquel for his very refractory difficult to treat anxiety. Hopefully once he is more settled we can also start to work on lifestyle measures and or counseling. New onset type 2 diabetesinsulin management for now. His diet is surprisingly rich and muffins, and it sounds like most of what he eats that is not a muffin is also very simple carbohydrate laden. With any willingness to make eating habit changes and increase exercise, it is likely that he can put his diabetes into remission, and is also likely that we will be to send him out on oral agents rather than a complicated insulin regimen (which would be difficult with his anxiety). Extensively educated on "why to care" (high sugars clog arteries), and discussed insulin resistance as a progressive disease brought on by progressive and repeated spikes in blood sugar from simple/starchy carbs. Discussed lifestyle measures that would put diabetes into remission. Otherwise as above, ambulation for DVT prophylaxis. Subjective no acute events overnight. feels anxious. eating and drinking well. says he is constipated. Review of Systems Psychiatric: + anxiety Physical Exam Constitutional: WD/WN, vitals as above Not diaphoretic Eyes: + anicteric sclerae ENMT: external ear and nose normal, oropharynx normal Neck: normal visual inspection Respiratory: normal respiratory effort, lungs clear to auscultation Cardiovascular: RRR, no murmur, no edema Heart Sounds: normal S1 and normal S2 Gastrointestinal (Abdomen): normal bowel sounds, soft, nontender, no hepatosplenomegaly Skin: no rashes, warm and dry Neurologic: Motor/Sensory: no tremor Psychiatric: Orientation: oriented x 3 Affect: + flat affect drowsy Results & Data Vital Signs (Past 12 Hours) Vital Signs Temp Pulse Resp BP Pulse Ox 04/09/19 15:43 36.6 C 83 16 144/88 H 95 04/09/19 11:03 36.5 C 75 19 112/75 97 04/09/19 07:36 36.5 C 68 18 120/81 99 Resident Activity Tracking Resident Involvement: Resident Care Provided Care Provided: Adult Hospital Medicine
--- NOTE | 2019-04-09 17:20 | Billing Data ---
Date of Service April 09, 2019 Coding Level of Care Code 51498 Subseq Hosp Care Lvl 3
[2019-04-09] MEDS: GABAPENTIN 300 MG CAP PO SCH (20:11)
[2019-04-09] MEDS: ACETAMINOPHEN 325 MG TAB PO PRN (20:14)
[2019-04-10] MEDS ORDERED: GABAPENTIN 400 MG CAP PO SCH
--- NOTE | 2019-04-10 08:02 | Hospitalist Progress Note ---
Date of Service April 10, 2019 Assessment & Plan (1) Benzodiazepine dependence: 63 yoM with PMH anxiety and benzodiazepine abuse who presented to the ED for benzo overdose, found to have new onset type II diabetes mellitus. 1) Benzodiazepine Abuse + Withdrawal - AWSS protocol. Ordered 1 dose of 0.5mg clonazepam as patient was anxious on exam - Gabapentin Taper in place for withdrawal symptoms - continue clonidine 0.1mg BID - Psychiatry onboard, recommended starting Seroquel 25mg BID for anxiety 2) DM2 - A1C 10.5 on admission, 3+ glucose in urine - on review of POC glucose, increased basal insulin from 12 units to 15 units - carb ratio adjusted from 1:10 to 1:7 for tighter control of post-prandial sugars - carb consisted diet FEN/GI: DM2 diet DVT PPX: SCDs Dispo: med/surg Code status: full code (2) Anxiety: (3) Diabetes: Subjective no acute events overnight. feels anxious. eating and drinking well. says he is constipated. Review of Systems Psychiatric: + anxiety Physical Exam Constitutional: WD/WN, vitals as above Eyes: + anicteric sclerae ENMT: external ear and nose normal, oropharynx normal Neck: normal visual inspection Respiratory: normal respiratory effort, lungs clear to auscultation Cardiovascular: RRR, no murmur, no edema Heart Sounds: normal S1 and normal S2 Gastrointestinal (Abdomen): normal bowel sounds, soft, nontender, no hepa tosplenomegaly Skin: no rashes, warm and dry Neurologic: Motor/Sensory: no tremor Psychiatric: Orientation: oriented x 3 Affect: + flat affect Results & Data Vital Signs (Past 12 Hours) Vital Signs Temp Pulse Resp BP Pulse Ox 04/10/19 07:12 36.7 C 75 18 118/76 97 04/09/19 23:17 36.8 C 76 18 127/84 96 Resident Activity Tracking Resident Involvement: Resident Care Provided Care Provided: Adult Hospital Medicine
[2019-04-10] MEDS: METFORMIN HCL 500 MG TAB PO SCH (08:54)
[2019-04-10] MEDS: ACETAMINOPHEN 325 MG TAB PO PRN ×4 (08:54→23:33)
[2019-04-10] MEDS: cloNIDine HCL 0.1 MG TAB PO SCH ×2 (08:55→21:41)
[2019-04-10] MEDS: MAGNESIUM HYDROXIDE SUSP 30 ML UDC PO SCH ×2 (08:55→21:10)
[2019-04-10] MEDS: QUETIAPINE FUMARATE 25 MG TABLET PO SCH ×3 (08:55→21:08)
[2019-04-10] MEDS: INSULIN GLARGINE SOLOSTAR 100 UNITS/ML 3 ML PEN SC SCH ×2 (08:55→21:11)
[2019-04-10] MEDS: INSULIN ASPART 100 UNITS/ML 3 ML PEN SC SCH ×4 (08:57→21:12)
[2019-04-10] MEDS: ATORVASTATIN 40 MG TAB PO SCH (16:32)
[2019-04-10 17:24] LABS: 7-Aminoclonaz, Confirm NEGATIVE ng/mL (<25); Hydro-Alp Ur, GC/MS 241 ng/mL (<25); Hydroxyethylflurazepam, Conf NEGATIVE ng/mL (<50); Hydroxytriazolam NEGATIVE ng/mL (<50); Lorazepam, Ur GC/MS 252 ng/mL (<50); Nordiazepam, Confirm NEGATIVE ng/mL (<50); Oxazepam Ur, GC/MS NEGATIVE ng/mL (<50); Temazepam, Confirm NEGATIVE ng/mL (<50)
[2019-04-10] MEDS: ENOXAPARIN INJ 40 MG/0.4 ML SYR SQ SCH (17:46)
--- NOTE | 2019-04-10 18:50 | Billing Data ---
Date of Service April 10, 2019 Coding Level of Care Code 92814 Subseq Hosp Care Lvl 3
[2019-04-10] MEDS: GABAPENTIN 300 MG CAP PO SCH (21:09)
[2019-04-11] MEDS: ENOXAPARIN INJ 40 MG/0.4 ML SYR SQ SCH ×3 (06:15→20:19)
[2019-04-11] MEDS: QUETIAPINE FUMARATE 25 MG TABLET PO SCH ×3 (08:45→22:34)
[2019-04-11] MEDS: cloNIDine HCL 0.1 MG TAB PO SCH ×2 (08:46→20:13)
[2019-04-11] MEDS: METFORMIN HCL 500 MG TAB PO SCH (08:46)
[2019-04-11] MEDS: ATORVASTATIN 40 MG TAB PO SCH (08:46)
[2019-04-11] MEDS: INSULIN GLARGINE SOLOSTAR 100 UNITS/ML 3 ML PEN SC SCH ×2 (08:47→20:11)
[2019-04-11] MEDS: INSULIN ASPART 100 UNITS/ML 3 ML PEN SC SCH ×4 (08:49→20:10)
[2019-04-11] MEDS: MAGNESIUM HYDROXIDE SUSP 30 ML UDC PO SCH ×2 (08:58→20:17)
[2019-04-11] MEDS ORDERED: GABAPENTIN 400 MG CAP PO SCH (12:00)
--- NOTE | 2019-04-11 15:10 | Medical Student Progress Note ---
Date of Service April 11, 2019 Assessment & Plan (1) Benzodiazepine dependence: Pt is 63-year-old male with past medical history significant for MDD, anxiety, and benzodiazepine use who presented to hospital for benzodiazepine OD managed with AWSS protocol and gabapentin taper and T2DM with insulin and metformin. Benzodiazepine Use disorder with Withdrawal - D/C AWSS protocol at this time since patient medically stable. - Continue gabapentin - Continue 0.1mg clonidine PRN Anxiety - Per pt, anxiety has increased and has expressed reluctancy on being discharged. He lives at home by himself. - Started on Seroquel - increase dose further to 50mgs tid due to uncontrolled symptoms. - Add 50mg Hydroxyzine for prn use - Per Psych, [facility] is able to reschedule patient for appointment on 05/17/19 at 15:00 at the earliest. L Hand Weakness - Per pt, weakness is chronic and was evaluated 3 years ago by neurologist, but never followed up - Inability to make a fist and thenar eminence and interosseus muscle wasting indicates more neurological etiology. - Need outpatient referral for PM&R () for EMG/NCV and follow up Type 2 DM - Per chart, pt has distant history of DM and was previously treated with exercise and diet - HbA1C on admission was 10.5. Blood glucose today is 193. - Started on lantus and log here. continue to titrate dose. Increase metformin from 500mg to 1000mg XR daily - Consider Glimepiride 5mg QD in the outpatient setting in addition to metformin if reluctant to use insulin on discharge. - Continue education on lifestyle modifications and medication adjustments. Hyperlipidemia - Given T2DM and 04/09 lipid panel of TG 435, chol 217, HDL 35 - 10 year ASCVD risk of 23.1% - Continue 40mg Atorvastatin FEN/GI: DM2 diet DVT PPX: SCDs Dispo: med/surg Code: Full (2) Anxiety: (3) Diabetes: Supervising Attestation Medical student Supervision Note: I independently interviewed and examined the patient and verified the machado hi story and physical, reviewed labs and image studies, discussed the case with [facility] and agree with the findings and care plan. reluctant to going home due to uncontrolled anxiety. titrate seroquel dose. add prn vistaril. psych liason arranging outpatient appt with [facility]. Subjective Pt reports feeling more anxious today at 5/10 compared to yesterday 4/10, increase associated with background noises from roommate and hallway, deep breathing and earplugs helps.He requested seroquel. He is eating well and enjoys the foods. He is no longer constipated and feels like "20lbs" have been lifted off of him, stool is more soft. Review of Systems Constitutional: no fever and no chills Eyes: + corrective lenses (blurry vision associated with glasses) Ear, Nose, Mouth, Throat: no dizziness Respiratory: no cough and no dyspnea Cardiovascular: no chest pain, no palpitations, no lightheadedness and no edema Gastrointestinal: + diarrhea/loose stools; no abdominal pain, no bloating, no nausea and no vomiting Genitourinary: + urinary frequency; no dysuria Musculoskeletal: + body aches Neurologic: no tingling, no numbness, no dizziness and no headache(s) Psychiatric: + hopelessness, + anhedonia, + abnormal sleep pattern (chronic difficulty sleeping), + change in appetite (increased in hospital), + anxiety and + difficulty concentrating; no suicidal ideation, no confusion and no hallucinations Physical Exam Constitutional: WD/WN, vitals as above Eyes: PERRL, conjunctivae normal, anicteric sclerae ENMT: external ear and nose normal, oropharynx normal Neck: normal visual inspection Respiratory: normal respiratory effort, lungs clear to auscultation Auscultation: lungs clear to auscultation bilaterally Cardiovascular: RRR, no murmur, no edema Extremities: no edema Gastrointestinal (Abdomen): normal bowel sounds, soft, nontender, no hepatosplenomegaly Musculoskeletal: Head/Neck/Chest: normocephalic and head atraumatic Skin: no rashes, warm and dry Neurologic: moves all extremities Motor/Sensory: + tremor (L>R) Thenar eminence and interossus muscle wasting on L hand, unable to clench into fist. Psychiatric: Orientation: oriented x 3 Speech: no loud speech Mood: + anxious mood Suicidal Thoughts: denies suicidal thoughts, denies suicidal plan and denies suicidal intent Homicidal Thoughts: denies homicidal thoughts, denies homicidal plan and denies homicidal intent Results & Data Vital Signs (Past 12 Hours) Vital Signs Temp Pulse Resp BP Pulse Ox 04/11/19 10:08 36.3 C L 82 20 164/98 H 97 04/11/19 07:14 36.5 C 85 20 127/83 96
[2019-04-11] MEDS ORDERED: Nursing to Pharmacy Communication ONE (16:58)
[2019-04-11] MEDS: METFORMIN HCL ER 500 MG TABCR PO SCH (17:08)
[2019-04-11] MEDS: ACETAMINOPHEN 325 MG TAB PO PRN ×2 (18:27→23:25)
[2019-04-11] MEDS: GABAPENTIN 300 MG CAP PO SCH (20:13)
[2019-04-11] MEDS ORDERED: QUETIAPINE FUMARATE 25 MG TABLET PO SCH ×2 (21:00)
[2019-04-12] MEDS: QUETIAPINE FUMARATE 25 MG TABLET PO SCH ×3 (08:16→20:50)
[2019-04-12] MEDS: cloNIDine HCL 0.1 MG TAB PO SCH ×2 (08:16→20:50)
[2019-04-12] MEDS: INSULIN GLARGINE SOLOSTAR 100 UNITS/ML 3 ML PEN SC SCH ×2 (08:17→20:48)
[2019-04-12] MEDS: ATORVASTATIN 40 MG TAB PO SCH (08:17)
[2019-04-12] MEDS: INSULIN ASPART 100 UNITS/ML 3 ML PEN SC SCH ×4 (08:19→20:49)
[2019-04-12] MEDS: MAGNESIUM HYDROXIDE SUSP 30 ML UDC PO SCH ×3 (08:21→20:52)
[2019-04-12] MEDS: ACETAMINOPHEN 325 MG TAB PO PRN ×2 (09:36→16:11)
--- NOTE | 2019-04-12 09:58 | Hospitalist Progress Note ---
Date of Service April 12, 2019 Results & Data Vital Signs (Past 12 Hours) Vital Signs Temp Pulse Resp BP Pulse Ox 04/12/19 07:18 36.7 C 76 18 129/79 97 04/12/19 00:55 36.5 C 66 19 108/68 97
--- NOTE | 2019-04-12 13:26 | Medical Student Progress Note ---
Date of Service April 12, 2019 Assessment & Plan (1) Benzodiazepine dependence: Pt is 63-year-old male with past medical history significant for MDD, anxiety, and benzodiazepine use who presented to hospital initially for benzodiazepine OD, but continues to have uncontrolled anxiety that is managed with Seroquel and Vistaril. Benzodiazepine Use disorder + Withdrawal - D/C AWSS protocol as patient is medically stable - Continue gabapentin - Continue 0.1mg clonidine PRN Generalized Anxiety ds - has failed multiple different meds in past. was on high dose BZD as outpatient - Started on Seroquel - 50mg TID due to uncontrolled symptoms, - Trialed on Vistaril 50mg yesterday, patient noted significant improvement. - Add Vistaril 50mg BID PRN to current medical regiment. - Per Lucie Renee is able to reschedule patient for appointment on 05/17/19 at 15:00 at the earliest - Will continue to explore other options for outpatient psych with closer follow up date - Per pt, anxiety has increased and has expressed reluctancy on being discharged. He lives at home by himself. - Discussed with patient the risk/cons of continual hospitalization without acute problem, he understands - Plan to discharge home tomorrow. - 16:23 was notified by nursing staff that patient was stating suicidal ideation. Resident went to patient's room and assessed status, patient noted a plan to "Jump from the roof and splat." He continually requested Vistaril 100mg during the encounter. Psych Liason was contacted who evaluated the patient. Recommendation to increase Seroquel to 75mg TID and keep current dose of Vistaril 50mg BID PRN. Psychiatric evaluation in the AM. L Hand Weakness - Per pt, weakness is chronic and was evaluated 3 years ago by neurologist, but never followed up - Inability to make a fist and thenar eminence and interosseus muscle wasting indicates more neurological etiology with involvement of multiple nerves. - Need outpatient referral for PM&R () for EMG/NCV and follow up Type 2 DM - Per chart, pt has distant history of DM and was previously treated with exercise and diet - HbA1C on admission was 10.5. Blood glucose today is 162. - Started on lantus and log here. Continue to titrate dose. Increase metformin from 500mg to 1000mg XR daily. - Discussed with patient about outpatient insulin use, he would not tolerate it - Per pharm rec, SGLT2 in outpatient setting given ASCVD score - Continue education on lifestyle modifications and medication adjustments. Hyperlipidemia - Given T2DM and 04/09 lipid panel of TG 435, chol 217, HDL 35 - 10 year ASCVD risk of 23.1% - Continue 40mg Atorvastatin FEN/GI: DM2 diet DVT PPX: SCDs Dispo: med/surg Code: Full (2) Anxiety: (3) Diabetes: Supervising Attestation Medical student Supervision Note: I independently interviewed and examined the patient and verified the machado history and physical, reviewed labs and image studies, discussed the case with Aleah Salinas and agree with the findings and care plan. Subjective Pt reports improvement in anxiety due to having no roommate and being able to sleep more than usual, but still rates anxiety as a 5/10 which is same from yesterday. He states that his anxiety increases when he talks about it. He is anxious about finances and family relantionships. He asked for Vistaril. Reports loose stools with no blood or mucous. He is eating well. Review of Systems Eyes: + corrective lenses (blurry vision associated with glasses, does not have them with him) Respiratory: no cough, no dyspnea and no pain on inspiration Cardiovascular: no chest pain and no dyspnea on exertion Gastrointestinal: + diarrhea/loose stools; no abdominal pain, no bloating, no nausea and no vomiting Genitourinary: + urinary frequency; no dysuria Musculoskeletal: + body aches Psychiatric: + hopelessness, + anhedonia, + abnormal sleep pattern (chronic difficulty sleeping), + change in appetite (increased in hospital), + anxiety and + difficulty concentrating; no suicidal ideation, no confusion and no hallucinations Physical Exam Constitutional: WD/WN, vitals as above Eyes: PERRL, conjunctivae normal, anicteric sclerae ENMT: external ear and nose normal, oropharynx normal Neck: normal visual inspection Respiratory: normal respiratory effort, lungs clear to auscultation A uscultation: lungs clear to auscultation bilaterally Cardiovascular: RRR, no murmur, no edema Extremities: no edema Gastrointestinal (Abdomen): normal bowel sounds, soft, nontender, no hepatosplenomegaly Musculoskeletal: Head/Neck/Chest: normocephalic and head atraumatic Skin: no rashes, warm and dry Neurologic: moves all extremities Motor/Sensory: + tremor (L>R) Psychiatric: Orientation: oriented x 3 Speech: no loud speech Mood: + anxious mood Suicidal Thoughts: denies suicidal thoughts, denies suicidal plan and denies suicidal intent Homicidal Thoughts: denies homicidal thoughts, denies homicidal plan and denies homicidal intent Results & Data Vital Signs (Past 12 Hours) Vital Signs Temp Pulse Resp BP Pulse Ox 04/12/19 07:18 36.7 C 76 18 129/79 97 Diagnostic Findings Abnormal lab results 04/11/19 04/11/19 04/12/19 Range/Units 16:35 20:03 07:38 POC Glucose 130 H 137 H 157 H (70-99) 04/12/19 Range/Units 11:34 POC Glucose 162 H (70-99) Medications Administered Current Medications Acetaminophen (Tylenol) 650 mg PO Q4H PRN PRN Reason: Pain or Fever Stop: 05/07/19 22:43 Last Admin: 04/12/19 09:36 Dose: 650 mg Documented by: Al Hydrox/Mg Hydrox/Simethicone (Maalox) 15 ml PO Q4H PRN PRN Reason: Dyspepsia Stop: 05/07/19 22:43 Atorvastatin Calcium (Lipitor) [facility] [place] Stop: 05/10/19 14:29 Last Admin: 04/12/19 08:17 Dose: 40 mg Documented by: Clonidine HCl (Catapres) 0.1 mg PO BID [facility] Stop: 05/08/19 08:59 Last Admin: 04/12/19 08:16 Dose: 0.1 mg Documented by: Enoxaparin Sodium (Lovenox) 40 mg SQ HS [facility] Stop: 05/11/19 20:59 Last Admin: 04/11/19 20:19 Dose: Not Given Documented by: Gabapentin (Neurontin) 300 mg PO HS [facility] Stop: 05/08/19 20:59 Last Admin: 04/11/19 20:13 Dose: 300 mg Documented by: Glucagon (Glucagen) 1 mg SQ UD PRN; Protocol PRN Reason: Hypoglycemia Protocol Stop: 05/07/19 22:43 Glucose (Dex4 Glucose) 4 - 8 tabs PO UD PRN; Protocol PRN Reason: Hypoglycemia Protocol Stop: 05/07/19 22:43 Glucose (Glucose 40%) 15 - 30 gm PO UD PRN; Protocol PRN Reason: Hypoglycemia Protocol Stop: 05/07/19 22:43 Hydroxyzine HCl (Vistaril) 50 mg PO BID PRN PRN Reason: anxiety Stop: 05/12/19 10:50 Last Admin: 04/12/19 11:57 Dose: 50 mg Documented by: Insulin Aspart (Novolog Flexpen) 0 units SC ACHS [facility] Stop: 05/08/19 07:29 Last Admin: 04/12/19 13:34 Dose: 8 units Documented by: Insulin Glargine (Lantus Solostar Pen) 15 units SC BID [facility] Stop: 05/09/19 20:59 Last Admin: 04/12/19 08:17 Dose: 15 units Documented by: Magnesium Hydroxide (Milk Of Magnesia) 30 ml PO Q12 [facility] Stop: 05/09/19 09:14 Last Admin: 04/12/19 08:21 Dose: Not Given Documented by: Metformin HCl (Glucophage Er) 1,000 mg PO DAILY@1700 [facility] Stop: 05/11/19 16:59 Last Admin: 04/11/19 17:08 Dose: 1,000 mg Documented by: Miscellaneous (Carbohydrates For Hypoglycemia) 15 - 30 gm PO UD PRN PRN Reason: Hypoglycemia Protocol Stop: 05/07/19 22:43 Ondansetron HCl (Zofran) 4 mg IV Q6H PRN PRN Reason: Nausea Stop: 05/07/19 22:43 Quetiapine Fumarate (Seroquel) 50 mg PO TID [facility] Stop: 05/11/19 17:29 Last Admin: 04/12/19 13:35 Dose: 50 mg Documented by:
[2019-04-12] MEDS: METFORMIN HCL ER 500 MG TABCR PO SCH (17:25)
[2019-04-12] MEDS: GABAPENTIN 300 MG CAP PO SCH (20:50)
[2019-04-12] MEDS: ENOXAPARIN INJ 40 MG/0.4 ML SYR SQ SCH (20:53)
[2019-04-13] MEDS: ACETAMINOPHEN 325 MG TAB PO PRN ×2 (02:16→07:53)
[2019-04-13] MEDS: cloNIDine HCL 0.1 MG TAB PO SCH ×2 (07:44→20:01)
[2019-04-13] MEDS: ATORVASTATIN 40 MG TAB PO SCH (07:44)
[2019-04-13] MEDS: QUETIAPINE FUMARATE 25 MG TABLET PO SCH ×3 (07:44→20:05)
[2019-04-13] MEDS: MAGNESIUM HYDROXIDE SUSP 30 ML UDC PO SCH ×2 (07:44→20:09)
[2019-04-13] MEDS: INSULIN ASPART 100 UNITS/ML 3 ML PEN SC SCH ×4 (08:06→20:07)
[2019-04-13] MEDS: INSULIN GLARGINE SOLOSTAR 100 UNITS/ML 3 ML PEN SC SCH ×2 (08:08→20:04)
--- NOTE | 2019-04-13 09:46 | Medical Student Progress Note ---
Date of Service April 13, 2019 Assessment & Plan (1) Benzodiazepine dependence: Pt is 63-year-old male with past medical history significant for MDD, anxiety, and benzodiazepine use who presented to hospital initially for benzodiazepine OD, but continues to have uncontrolled anxiety that is managed with Seroquel and Vistaril. Benzodiazepine Use disorder + Withdrawal - D/C AWSS protocol as patient is medically stable - Continue gabapentin - Continue 0.1mg clonidine PRN Generalized Anxiety ds Suicidal thoughts - has failed multiple different meds in past. Was on high dose BZD as outpatient - Previous night, he had suicidal ideation and noted a plan to "jump from the roof and splat". Today he reports suicidal ideation, but no plan. - Started on Seroquel - increase to 75mg TID due to uncontrolled symptoms, - Vistaril added to current regimen - increase to 50mg BID PRN. - Await psychiatric eval L Hand Weakness - Per pt, weakness is chronic and was evaluated 3 years ago by neurologist, but never followed up - Inability to make a fist and thenar eminence and interosseus muscle wasting indicates more neurological etiology with involvement of multiple nerves. - Need outpatient referral for PM&R () for EMG/NCV and follow up Type 2 DM - Per chart, pt has distant history of DM and was previously treated with exercise and diet - HbA1C on admission was 10.5. Blood glucose today is 115 - Started on lantus and log here. Continue to titrate dose. Continue metformin 1000mg XR daily. - Discussed with patient about outpatient insulin use, he would not tolerate it - Per pharm rec, SGLT2 in outpatient setting given ASCVD score - Continue education on lifestyle modifications and medication adjustments. Hyperlipidemia - Given T2DM and 04/09 lipid panel of TG 435, chol 217, HDL 35 - 10 year ASCVD risk of 23.1% - Continue 40mg Atorvastatin FEN/GI: DM2 diet DVT PPX: SCDs Dispo: med/surg Code: Full (2) Anxiety: (3) Diabetes: Supervising Attestation Medical student Supervision Note: I independently interviewed and examined the patient and verified the machado history and physical, reviewed labs and image studies, discussed the case with Aleah Salinas and agree with the findings and care plan. Subjective Pt is feeling depressed and anxious, worse than yesterday. Today, he reports suicidal thoughts that are fleeting, but no plan. Sleeping a bit better, but feels tired. He has a sitter with him. He reports hx of chronic muscle ache - pain with R shoulder treated with tylenol and ibuprofen PRN. He is eating well. Loose stool with no mucous or blood. Review of Systems Eyes: + corrective lenses (blurry vision associated with glasses, does not have them with him) Ear, Nose, Mouth, Throat: + dry mouth (chronic) Respiratory: no cough, no dyspnea and no pain on inspiration Cardiovascular: no chest pain, no palpitations and no edema Gastrointestinal: + diarrhea/loose stools; no abdominal pain, no bloating, no nausea and no vomiting Genitourinary: + urinary frequency; no dysuria Musculoskeletal: + body aches (chronic) Pain in R shoulder Psychiatric: + hopelessness, + anhedonia, + abnormal sleep pattern (chronic difficulty sleeping), + change in appetite (increased in hospital), + anxiety and + difficulty concentrating; no suicidal ideation, no confusion and no hallucinations Physical Exam Constitutional: WD/WN, vitals as above Eyes: PERRL, conjunctivae normal, anicteric sclerae ENMT: external ear and nose normal, oropharynx normal Neck: normal visual inspection Respiratory: normal respiratory effort, lungs clear to auscultation Auscult ation: lungs clear to auscultation bilaterally Cardiovascular: RRR, no murmur, no edema Extremities: no edema Gastrointestinal (Abdomen): normal bowel sounds, soft, nontender, no hepatosplenomegaly Musculoskeletal: Head/Neck/Chest: normocephalic and head atraumatic Skin: no rashes, warm and dry Neurologic: moves all extremities Motor/Sensory: + tremor (L>R) Psychiatric: Orientation: oriented x 3 Speech: no loud speech Affect: + anxious affect Mood: + depressed mood and + anxious mood Suicidal Thoughts: denies suicidal thoughts; + reports suicidal plan (previous night - reported plan to "jump from roof and splat") Homicidal Thoughts: denies homicidal thoughts and denies homicidal plan Cognition: recent memory grossly intact Insight: good insight Judgement: + poor judgement Results & Data Vital Signs (Past 12 Hours) Vital Signs Temp Pulse Resp BP Pulse Ox 04/13/19 07:18 36.4 C L 70 18 145/91 H 97 04/12/19 23:12 36.4 C L 73 18 132/79 95 Laboratory Results Abnormal lab results 04/12/19 04/12/19 04/12/19 Range/Units 11:34 16:22 20:05 POC Glucose 162 H 183 H 151 H (70-99) 04/13/19 Range/Units 07:27 POC Glucose 115 H (70-99) Medications Administered Current Inpatient Medications Acetaminophen (Tylenol) 650 mg PO Q4H PRN PRN Reason: Pain or Fever Stop: 05/07/19 22:43 Last Admin: 04/13/19 07:53 Dose: 650 mg Documented by: Al Hydrox/Mg Hydrox/Simethicone (Maalox) 15 ml PO Q4H PRN PRN Reason: Dyspepsia Stop: 05/07/19 22:43 Atorvastatin Calcium (Lipitor) [facility] [place]: 05/10/19 14:29 Last Admin: 04/13/19 07:44 Dose: 40 mg Documented by: Clonidine HCl (Catapres) 0.1 mg PO BID [facility] Stop: 05/08/19 08:59 Last Admin: 04/13/19 07:44 Dose: 0.1 mg Documented by: Enoxaparin Sodium (Lovenox) 40 mg SQ HS [facility] Stop: 05/11/19 20:59 Last Admin: 04/12/19 20:53 Dose: Not Given Documented by: Gabapentin (Neurontin) 300 mg PO HS [facility] Stop: 05/08/19 20:59 Last Admin: 04/12/19 20:50 Dose: 300 mg Documented by: Glucagon (Glucagen) 1 mg SQ UD PRN; Protocol PRN Reason: Hypoglycemia Protocol Stop: 05/07/19 22:43 Glucose (Dex4 Glucose) 4 - 8 tabs PO UD PRN; Protocol PRN Reason: Hypoglycemia Protocol Stop: 05/07/19 22:43 Glucose (Glucose 40%) 15 - 30 gm PO UD PRN; Protocol PRN Reason: Hypoglycemia Protocol Stop: 05/07/19 22:43 Hydroxyzine HCl (Vistaril) 50 mg PO BID PRN PRN Reason: anxiety Stop: 05/12/19 10:50 Last Admin: 04/13/19 08:06 Dose: 50 mg Documented by: Ibuprofen (Motrin) 600 mg PO Q8H PRN PRN Reason: Pain Stop: 05/13/19 10:35 Last Admin: 04/13/19 10:55 Dose: 600 mg Documented by: Insulin Aspart (Novolog Flexpen) 0 units SC ACHS [facility] Stop: 05/08/19 07:29 Last Admin: 04/13/19 08:06 Dose: 5 units Documented by: Insulin Glargine (Lantus Solostar Pen) 15 units SC BID [facility] Stop: 05/09/19 20:59 Last Admin: 04/13/19 08:08 Dose: 15 units Documented by: Magnesium Hydroxide (Milk Of Magnesia) 30 ml PO Q12 [facility] Stop: 05/09/19 09:14 Last Admin: 04/13/19 07:44 Dose: Not Given Documented by: Metformin HCl (Glucophage Er) 1,000 mg PO DAILY@1700 [facility] Stop: 05/11/19 16:59 Last Admin: 04/12/19 17:25 Dose: 1,000 mg Documented by: Miscellaneous (Carbohydrates For Hypoglycemia) 15 - 30 gm PO UD PRN PRN Reason: Hypoglycemia Protocol Stop: 05/07/19 22:43 Ondansetron HCl (Zofran) 4 mg IV Q6H PRN PRN Reason: Nausea Stop: 05/07/19 22:43 Quetiapine Fumarate (Seroquel) 75 mg PO TID [facility] Stop: 05/12/19 20:59 Last Admin: 04/13/19 07:44 Dose: 75 mg Documented by:
[2019-04-13] MEDS: IBUPROFEN 600 MG TAB PO PRN ×2 (10:55→19:43)
--- NOTE | 2019-04-13 14:20 | Psychiatric Progress Note ---
Date of Service April 13, 2019 Impression / Recommendations Impression 63-year-old male admitted medically on 04/07/2019 after presenting to the ED with signs and symptoms of benzodiazepine withdrawal. Patient had admitted to overuse of prescription lorazepam and alprazolam, and attempts to treat his exacerbation of anxiety. Benzodiazepine withdrawal is being treated medically by primary team, and patient was placed on AWSS protocol with gabapentin taper. We have been involved in patient's case in order to assist with medication recommendation to manage anxiety. Dose of quetiapine was titrated last evening to 75mg TID - patient continues to verbalize acute need for anxiety medications. Reviewed with patient that medication adjustments need to be coupled with behavioral strategies to manage anxiety. Pt was offered stress ball, books, coloring pages, word searches, CD player, sound machine, and other coping strategies/distraction techniques. He declined them all stating, "that never works." Pt again refused referral for an outpatient telephonic case manager. He was offered inpatient psychiatric treatment, which he stated he was not interested in at this time. We will continue to follow along in patient's case and offer additional recommendations as available. Suggest continued adherence to appropriate boundaries with regard to medication dosing and redirection toward coping strategies during times of increased anxiety. Pt did verbalize a support, whom he is willing to have us call to discuss presentation and any possible safety concerns. Psychiatric liaison to follow-up with obtaining collateral information. Please reach out to our service with additional questions or concerns. Pt is at increased overall risk of potential harm to self when compared to the general population. He has a 20+ year history of anxiety and chronic SI, substance abuse/misuse, and limited willingness to comply with treatment recommendations. Based on the chronic nature of these symptoms, it is difficult to argue that his current statements demonstrate acute risk of harm, and therefore he is not likely to meet criteria for involuntary inpatient psychiatric admission. Dr. Katrin Kidd was directly involved in review and discussion of the patient's case and participated in medical decision making regarding treatment recommendations. RECOMMENDATIONS: 04/13 - Current treatment plan for management of anxiety remains appropriate - continue to avoid benzodiazepine use, and can titrate quetiapine as tolerated to effective dosing. It is likely that benefits of these medication adjustments may become more apparent over a period of several weeks. - Pt reporting SI, with seemingly non-specific plan to "jump" - denying specific consideration of how he would do this. Pt verbalizes these thoughts are chronic and have occurred "from time to time, they are nothing new." He is able to verbalize outpatient supports he would contact if self-harm thoughts became concerning outside of the hospital setting - Pt is declining recommendation for additional outpatient supports - refusing offers for case management referral, psych rehab, and therapy. He is reporting he is not interested in inpatient psychiatric treatment, and as his reports of SI are chronic and unchanged from similar reports in 2016, it is not likely that patient would meet criteria for an involuntary commitment - Pt is also unwilling to engage in behavioral modifications to target his anxiety symptoms, making the majority of his risk factors unable to be effectively mitigated by therapeutic intervention. - Unless patient is verbalizing willingness for inpatient psychiatric treatment, would suggest discharge home when medically cleared - follow-up scheduled with [facility] for medication management - Recommend patient be identified for ED reference as a patient with whom controlled substances should be avoided. He has a clear history of benzodiazepine misuse, and is being treated at this time for withdrawal. His chronic SI is also of concern with regard to continued coordination of care, and medications that that are highly lethal in overdose should be avoided. Protective Factors Assessment Employed: No Interval History Identifying Information 63-year-old male admitted medically on 04/07/2019 after presenting to the ED with concerns for benzodiazepine withdrawal. Patient was sent to the ED from [facility], where he had presented for his initial psychiatric evaluation. Psychiatric consultation was requested to evaluate patient for benzodiazepine withdrawal. Pt seen for follow-up to assess reports of passive SI related to continued anxiety. Chief Complaint "I'm feeling pretty rough. I just called for more meds." Review of Systems Notes Constitutional: reports overall anxiety and restlessness Cardiovascular: denied Respiratory: denied Gastrointestinal: denied Neurological: reports difficulty with concentration Psychiatric: denies symptoms other than stated above Musculoskeletal: report weakness of left hand, hx of TBI Total of at least 10 systems reviewed, pertinent positives as above and in HPI. Subjective Subjective Patient's case was reviewed and discussed during morning report with supervising psychiatrist and psychiatric nurse liaison. Our service was informed of suicidal statements patient had verbalized last evening. It was reported last evening that patient had verbalized suicidal thoughts with consideration to "jump from the roof and splat." Upon evaluation from primary team, patient reported ongoing passive SI this morning, but denied specific plan. Patient again denied active suicidal ideation when evaluated by psychiatric nurse liaison. He did verbalize passive thoughts of , and hopelessness - stating he is "wishing it was over." He verbalized passive suicidal ideation for "months" and denied a plan even when offered with specific considerations (i.e. hang, overdose, jump, etc.) he did verbalize that reaching out to friends has been helpful in the past as far as managing his depression and suicidal ideation. He refused referral for a telephonic case manager, despite recommendations from the psychiatric team. Patient was evaluated further by this provider later in the afternoon. Patient did report suicidal ideation, but inconsistencies in regard to plan. Patient vaguely states a plan to "jump", but denies specific consideration as to location or timing. In some ways, patient contradicts himself by stating "this is the same suicidal thought I have had for years. It comes and goes. I keep telling people that they have been there forever, this is nothing new. I should have known it would have created an uproar, but I think people are overreacting." Patient does verbalize to this provider that he "just wants it to stop", but it is unclear if patient is referring to wanting his suicidal ideation to stop, or is exacerbated anxiety. Patient has di fficulty answering these more complex questions, believing is limited explanations on "I had a traumatic brain injury, I cannot explain things like I want to. It so frustrating." Patient declined offer for inpatient psychiatric treatment, feeling it was not necessary and that "I just need my meds fixed." He does verbalize that he does not feel comfortable going home until his anxiety is under better control. Patient was informed that at some point management of his anxiety would be recommended to take place on an inpatient psychiatric unit, especially at the time that he is medically cleared. Patient continues to decline this recommendation. Patient was offered multiple items/activities being brought down from our unit, this included coloring pages, word searches, books, stress balls, and other activities. Patient declined each of these offers, stating "nothing works." Patient was provided with education regarding realistic benefits of medications, and need to supplement medication adjustments with healthy behavioral modifications to target anxiety. Patient remains uninterested in working on coping strategies to better target his anxiety. He continues to decline recommendation for a telephonic case manager, stating "it was a horrible experience, I will not do that again", but being unable to provide reasoning as to why. Patient declined other offering for therapy as well as [facility] rehab options. Patient did verbalize that he has several friends with whom he speaks in times of acute distress. He did provide this PA-C with a name and phone number for an outpatient support, offering verbal consent for us to reach out to her for collateral information. Patient denies other needs or concerns from our service at this time, other than continuously interrupting our conversation to verbalize his need "for meds" and request that this provider ask nursing to "give me my meds early, it's close enough to 2:00." Patient was reminded that he is on a specific schedule for his anxiety medications, and that his dose of quetiapine had just been increased today. Physical Exam Psychiatric Orientation: alert and oriented x 3 Apperance: appropriately dressed (for setting, wearing paper scrubs), appropriately groomed and appeared stated age Eye Contact: good eye contact Motor Behavior: no abnormal motor movements (observed while laying in bed) Speech: normal rate/rhythm/volume of speech Affect: + anxious affect Mood: + anxious mood ("I'm feeling pretty rough" and "I need more meds, I need them right now") Thought Process: goal directed thought process (goal being additional medications for anxiety), clear/coherent thought process and thought association intact Thought Content: + preoccupation (with level of anxiety and desire for additional medications) and reality based without delusions Suicidal Thoughts: + reports suicidal thoughts (reports SI) and + reports suicidal plan (at times denies plan, other times reports nonspecific plan to "jump") Homicidal Thoughts: denies homicidal thoughts Hallucinations: no auditory hallucinations and no visual hallucinations Cognition: attention grossly intact and language grossly intact Insight: + limited insight (likely chronic-limited insight as to additional ways he can improve anxiety) Judgement: + limited judgement Vital Signs (Past 24 Hours) Last Vital Signs Temp 36.4 C L 04/13/19 07:18 Pulse 70 04/13/19 07:18 Resp 18 04/13/19 07:18 BP 145/91 H 04/13/19 07:18 Pulse Ox 97 04/13/19 07:18 Results & Data Laboratory Results Laboratory Results - last 24 hr 04/12/19 04/12/19 04/13/19 16:22 20:05 07:27 POC Glucose 183 H 151 H 115 H 04/13/19 11:30 POC Glucose 196 H Current Inpatient Medications Current Inpatient Medications: Current Inpatient Medications Acetaminophen (Tylenol) 650 mg PO Q4H PRN PRN Reason: Pain or Fever Stop: 05/07/19 22:43 Last Admin: 04/13/19 07:53 Dose: 650 mg Documented by: Al Hydrox/Mg Hydrox/Simethicone (Maalox) 15 ml PO Q4H PRN PRN Reason: Dyspepsia Stop: 05/07/19 22:43 Atorvastatin Calcium (Lipitor) 40 mg PO QAM [facility] Stop: 05/10/19 14:29 Last Admin: 04/13/19 07:44 Dose: 40 mg Documented by: Clonidine HCl (Catapres) 0.1 mg PO BID [facility] Stop: 05/08/19 08:59 Last Admin: 04/13/19 07:44 Dose: 0.1 mg Documented by: Enoxaparin Sodium (Lovenox) 40 mg SQ HS [facility] Stop: 05/11/19 20:59 Last Admin: 04/12/19 20:53 Dose: Not Given Documented by: Gabapentin (Neurontin) 300 mg PO HS [facility] Stop: 05/08/19 20:59 Last Admin: 04/12/19 20:50 Dose: 300 mg Documented by: Glucagon (Glucagen) 1 mg SQ UD PRN; Protocol PRN Reason: Hypoglycemia Protocol Stop: 05/07/19 22:43 Glucose (Dex4 Glucose) 4 - 8 tabs PO UD PRN; Protocol PRN Reason: Hypoglycemia Protocol Stop: 05/07/19 22:43 Glucose (Glucose 40%) 15 - 30 gm PO UD PRN; Protocol PRN Reason: Hypoglycemia Protocol Stop: 05/07/19 22:43 Hydroxyzine HCl (Vistaril) 50 mg PO BID PRN PRN Reason: anxiety Stop: 05/12/19 10:50 Last Admin: 04/13/19 08:06 Dose: 50 mg Documented by: Ibuprofen (Motrin) 600 mg PO Q8H PRN PRN Reason: Pain Stop: 05/13/19 10:35 Last Admin: 04/13/19 10:55 Dose: 600 mg Documented by: Insulin Aspart (Novolog Flexpen) 0 units [facility] Stop: 05/08/19 07:29 Last Admin: 04/13/19 11:57 Dose: 7 units Documented by: Insulin Glargine (Lantus Solostar Pen) 15 units SC BID [facility] Stop: 05/09/19 20:59 Last Admin: 04/13/19 08:08 Dose: 15 units Documented by: Magnesium Hydroxide (Milk Of Magnesia) 30 ml PO Q12 [facility] Stop: 05/09/19 09:14 Last Admin: 04/13/19 07:44 Dose: Not Given Documented by: Metformin HCl (Glucophage Er) 1,000 mg PO DAILY@1700 [facility] Stop: 05/11/19 16:59 Last Admin: 04/12/19 17:25 Dose: 1,000 mg Documented by: Miscellaneous (Carbohydrates For Hypoglycemia) 15 - 30 gm PO UD PRN PRN Reason: Hypoglycemia Protocol Stop: 05/07/19 22:43 Ondansetron HCl (Zofran) 4 mg IV Q6H PRN PRN Reason: Nausea Stop: 05/07/19 22:43 Quetiapine Fumarate (Seroquel) 75 mg PO TID [facility] Stop: 05/12/19 20:59 Last Admin: 04/13/19 13:41 Dose: 75 mg Documented by: Mental Health & Subst Abuse Tx Psychiatrist Name of Psychiatrist: Lynne Lund Psychiatrist's Date of Appointment with Psychiatrist: 05/17/19 Time of Appointment with Psychiatrist: 3PM Psychiatrist Release of Information: Obtained, Reviewed and Signed Therapist Name of Therapist: Denies Personal Lines Agent Name of Personal Lines Agent: Denies Post Discharge Appointments Primary Care Physician Name Of Family Doctor: Dr. Garcia
[2019-04-13] MEDS: METFORMIN HCL ER 500 MG TABCR PO SCH (17:50)
[2019-04-13] MEDS: GABAPENTIN 300 MG CAP PO SCH (20:05)
[2019-04-13] MEDS: ENOXAPARIN INJ 40 MG/0.4 ML SYR SQ SCH (20:09)
[2019-04-14] MEDS: ATORVASTATIN 40 MG TAB PO SCH (08:13)
[2019-04-14] MEDS: INSULIN ASPART 100 UNITS/ML 3 ML PEN SC SCH ×2 (08:13→12:14)
[2019-04-14] MEDS: cloNIDine HCL 0.1 MG TAB PO SCH (08:13)
[2019-04-14] MEDS: QUETIAPINE FUMARATE 25 MG TABLET PO SCH (08:13)
[2019-04-14] MEDS: INSULIN GLARGINE SOLOSTAR 100 UNITS/ML 3 ML PEN SC SCH (08:13)
[2019-04-14] MEDS: MAGNESIUM HYDROXIDE SUSP 30 ML UDC PO SCH (08:18)
[2019-04-14] MEDS: IBUPROFEN 600 MG TAB PO PRN (08:18)
--- NOTE | 2019-04-14 08:20 | Medical Student Progress Note ---
Date of Service April 14, 2019 Assessment & Plan (1) Benzodiazepine dependence: (2) Anxiety: (3) Diabetes: (4) Left arm weakness: Results & Data Vital Signs (Past 12 Hours) Vital Signs Temp Pulse Resp BP BP Pulse Ox 04/14/19 07:20 36.6 C 67 18 162/97 H 98 04/13/19 22:54 36.7 C 79 18 152/84 H 96
[2019-04-14] MEDS ORDERED: QUETIAPINE FUMARATE 100 MG TABLET PO SCH (09:00)
[2019-04-14] MEDS ORDERED: QUETIAPINE FUMARATE 25 MG TABLET PO ONE (09:15)
--- NOTE | 2019-04-14 15:12 | Discharge Summary ---
Date of Service April 14, 2019 Admission HPI Per Admitting Provider Allen Hernandez is a 63-year-old male admitted medically on 04/07/2019 after presenting to the ED from [facility] with unintentional benzodiazepine overdose and concern for withdrawal. He admits to excessive use of alprazolam over the past 3 days, a prescription he received in the emergency room after running out of prior Lorazepam prescriptions. Patient has been started on the AWSS protocol and psychiatric consultation was requested to evaluate patient for benzodiazepine withdrawal. Patient is cooperative with assessment overall; however, he frequently interrupts interview to request "either Ativan or Xanax." Patient does admit that he is feeling "really rough." When asked what brought him to the emergency room, he states "panic attacks, this last one lasted for over 5 hours." Patient initially did not mention any concerns regarding overuse of benzodiazepines, but when asked directly does admit to using the medication more frequently than prescribed to treat worsening anxiety. Patient states that his panic attacks are often sporadic, and "just about anything" can cause one to occur. He does describe that he experiences "anxiety all of the time." Patient had previously been seeing Dr. Romano for 3 years for outpatient psychiatric medication management, outpatient records likely indicating he was discharged from the practice for multiple no-shows. He states his appointment at [facility] the day of admission was for his initial evaluation. Outpatient records indicate patient has been treated for diagnoses of anxiety, depression, and PTSD. He has a significant list of past medication trials, most of which have reportedly been ineffective or have worsened anxiety. When asked about prior psychiatric treatment, the patient admits to previous inpatient psychiatric hospitalizations. He denies prior suicide attempts, though outpatient records suggest hospital records suggest a prior hanging attempt at the age of 25, and possible ingestion of cleaning supplies in 2016. Patient denies suicidal thoughts at this time, stating he has no intent to end his life or to harm himself in any way. He does admit to increased depressed mood, feeling "helpless and hopeless." Appetite overall has been fair. He does admit to difficulty falling asleep and staying asleep. He also reports decrease in concentration and energy. Admission Exam Per Admitting Provider The patient is awake, and oriented 3, lethargic, normocephalic and atraumatic, lying in bed and in no acute distress. HEENT--PERRL, EOMI, mucous membranes and oropharynx dry. Neck--supple. No JVD. No bruits. Thyroid normal, trachea midline, no adenopathy. Heart--normal S1 and S2. No murmurs, rubs or gallops. Lungs--clear bilaterally, no respiratory distress, no accessory muscle use. Abdomen--normal bowel sounds and soft. Nontender. Nondistended. Extremities--no cyanosis or clubbing. No edema. There are good distal pulses b/l. Dermatologic--normal skin turgor, normal color, no abnormal lymph nodes, no rash. Neurologic--cranial nerves II through XII grossly intact. Rheumatologic--normal range of motion. Psychiatric--normal affect. Principal Diagnosis Benzodiazepine overdose and anxiety Discharge Exam Constitutional WD/WN, vitals as above Eyes PERRL, conjunctivae normal, anicteric sclerae + anicteric sclerae ENMT external ear and nose normal, oropharynx normal Neck normal visual inspection Respiratory normal respiratory effort, lungs clear to auscultation Auscultation: lungs clear to auscultation bilaterally Cardiovascular RRR, no murmur, no edema Heart Sounds: normal S1 and normal S2 Extremities: no edema Gastrointestinal (Abdomen) normal bowel sounds, soft, nontender, no hepatosplenomegaly Percussion/Palpation: abdomen soft; abdomen nontender Musculoskeletal Head/Neck/Chest: normocephalic and head atraumatic Extremities: + muscle atrophy (L hand, lumbricals and thenar eminance ) and + hand abnormality Left (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) Skin no rashes, warm and dry Neurologic moves all extremities Motor/Sensory: + tremor (L>R) Psychiatric Orientation: alert, oriented x 3 and cooperative Apperance: appropriately dressed (for setting, wearing paper scrubs), appropriately groomed and appeared stated age Eye Contact: + fair eye contact Motor Behavior: no abnormal motor movements Speech: normal rate/rhythm/volume of speech; no loud speech Affect: + anxious affect and mood congruent with affect Mood: + anxious mood Thought Process: goal directed thought process (goal of being in a quieter place than the hospital), clear/coherent thought process and thought association intact Thought Content: + preoccupation (with level of anxiety and desire for additional medications) and reality based without delusions Suicidal Thoughts: denies suicidal thoughts (reports SI), denies suicidal plan (at times denies plan) and denies suicidal intent Homicidal Thoughts: denies homicidal thoughts, denies homicidal plan and denies homicidal intent Hallucinations: no auditory hallucinations and no visual hallucinations Cognition: recent memory grossly intact, attention grossly intact and language grossly intact Insight: + limited insight (likely chronic-limited insight as to additional ways he can improve anxiety) Judgement: + fair judgement Discharge Data Allergies Allergy/AdvReac Type Severity Reaction Status Date / Time mold Allergy Mild ITCHY EYES Verified 04/07/19 10:49 No Known Drug Allergies Allergy Unknown . Verified 04/07/19 10:49 Consultations 04/07/19 16:35 ED Decision to Admit Stat 04/07/19 20:01 ED Decision to Admit Stat 04/07/19 22:44 Consult Case Management - Discharge Planning Routine Consult Psychiatry Routine 04/14/19 10:57 Consult [facility] commissioner of internal revenue Routine Ordered Studies 04/07/19 11:03 CT cervical spine wo con Stat CT head/brain wo con Stat Hospital Course (1) Benzodiazepine dependence: Pt is 63-year-old male with past medical history significant for MDD, anxiety, and benzodiazepine use who presented to hospital initially for benzodiazepine OD, but continues to have uncontrolled anxiety that is managed with Seroquel and Vistaril. Benzodiazepine Use disorder + Withdrawal - D/C AWSS protocol once patient was clinically stable. - Continued gabapentin while inpatient. - Continued 0.1mg clonidine BID, discharged with Clonidine taper. Generalized Anxiety - Occasional Suicidal thoughts noted during stay - Patient had failed multiple different meds in past. Was on high dose BZD as outpatient - Was started on seroquel. - He had suicidal ideation and noted a plan to "jump from the roof and splat" the night after discussion of discharge, - Psychiatry consulted - not a candidate for 302. - denied any SI during time of discharge. - Home on Seroquel 100mg TID and Vistaril 50mg BID per psych recommendations. L Hand Weakness - Per pt, weakness is chronic and was evaluated 3 years ago by neurologist, but never followed up - Inability to make a fist and thenar eminence and interosseus muscle wasting indicates more neurological etiology with involvement of multiple nerves. - Outpatient referral for PM&R () for EMG/NCV and follow up placed. Type 2 DM - Per chart, pt has distant history of DM and was previously treated with exercise and diet - HbA1C on admission was 10.5 - Kept on lantus and log while inpatient in conjunction with Metformin 1000mg XR QD - Discussed with patient about outpatient insulin use, he stated he would not tolerate it - Per pharm rec, Invokana 100mg QD started for the outpatient setting. - Continue education on lifestyle modifications and medication adjustments. Hyperlipidemia - Given T2DM and 04/09 lipid panel of TG 435, chol 217, HDL 35 - 10 year ASCVD risk of 23.1% - Started and continued 40mg Atorvastatin FEN/GI: DM2 diet DVT PPX: SCDs while inpatient Dispo: Home Code: Full (2) Anxiety: (3) Diabetes: Total Time Total Time Spent Total Time Spent (In Minutes): see attending attestation Discharge Plan Discharge Items Patient Disposition: Home - Self-Care Reason For Visit: BENZODIAZEPINE WITHDRAWAL Discharge Diagnosis: Benzodiazepine Withdrawal, Anxiety, Suicidal Ideation Activity: Per Instructions section Non-emergency contact: Primary Care Provider and Psychiatrist Call non-emergency contact if: you have any medication questions and your symptoms worsen Follow-up/Referrals: Benito Wagner MD [Surgeon] - (L Arm Weakness and L hand muscle wasting ) Ez Hargrove [Primary Care Provider] - 04/14/19 8:30 am (Please, follow up in Dr. Hargrove's office with his associate, Amelia DILL, on April 14 at 8:30 am. *If you need to change this appointment, call the office at [phone].) Diet: Regular Addtl Attending Provider Instructions: Mr. Hernandez, Ruel were evaluated and treated at [facility] from the dates of 04/07/19 to 04/14/19 for an initial concern for accidental Benzodiazepene overdose. While here, you were treated appropriately to prevent overdose and withdrawal symptoms, and your medications adjusted to help control your anxiety. You had noted a day where you had felt suicidal ideation, and you were evaluated by psychiatry who had offered you inpatient stay. You felt that it was not necessary at this time and that you were no longer having any suicidal ideation and that you would feel your anxiety would benefit best on the new medication regiment and going home. You were also diagnosed with overt diabetes while inpatient and were treated with Insulin and Metformin. Since you feel that you will be unable to continue Insulin in the outpatient setting, we would like you to continue the Metformin, Invokana (Canagliflozin), and Atorvastatin. You will also continue your Clonidine taper, Seroquel, and Hydroxyzine as needed. Please see the below instructions: Follow up with your PCP in the next week. Follow up with [facility] on May 17, 2019 at 3PM Follow up with Dr. Wagner for your L hand weakness -Please chicken picker and take the following medications as prescribed: -Seroquel 100mg TID -Hydroxyzine 50mg BID as needed -Clonidine 0.1mg as instructed on the packaging -Metformin ER 1000mg daily -Atorvastatin 40mg daily -Invokana 100mg daily before first meal Diabetes: -as we discussed, your sugar readings (most notably your A1c - see below) are quite indicative of being a type 2 diabetic; however, as we discussed, this is predominantly an illness of eating habits/lack of exercise, so if we can help coach builder you into making changes, you can almost certainly improve the situation (be under good control with minimal medications) or possibly even "put it into remission" (have good control with no medications) -fundamentally, the main thing that we worry about with diabetes is that high sugars clog arteries -the higher your sugars run, and the longer they run high, the more you clog up blood vessels you can't get back -while the most "famous" complications from diabetes are blindness, kidney disease, and neuropathy (from high sugars clogging up small blood vessels in eyes, kidneys and nerves to the feet), the most common complications are actually heart attacks and strokes (from high sugars clogging arteries to the heart and brain) -generally speaking if your sugar is above about 150 you'll be doing some degree of damage - higher is worse, and running high longer is worse. -an A1c is a marker of how high your sugars have been running over the last 3 months - red blood cells live for about 90 days, and so an A1c is basically a measure of how much your red cells look like a "glazed donut" -- your A1c was 10.5 (the cutoff for diabetes is 6.5 and up, the reasonable cutoff as an A1c for clogging arteries is that anything above 7 is probably an indicator that you're doing some degree of damage. insulin resistance -the fundamental problem that leads to high sugars in a type 2 diabetic is what's called insulin resistance -insulin is a hormone that our pancreas makes that gets sugar out of our bloodstream and into our muscles -if you eat something that has more carbs in it (more sugar, starch, etc) it will require more insulin to get that food out of your bloodstream and into your muscles -when someone has a propensity to become insulin resistant, basically what happens is your muscles get progressively more "addicted" to insulin - and require more insulin to process the same food (so for example, as insulin resistance develops, it would take more insulin to get the same plate of pasta out of your bloodstream and into your muscles) -eventually your muscles get so "addicted" to insulin that your pancreas (even working overtime) can't make enough insulin to keep up - when this happens, b lood sugars rise and people cross the arbitrary line from prediabetes to diabetes -the great news about this is that if you work to eliminate the simple/starchy/sugary carbs you can actually regress the severity of the insulin resistance (ie by avoiding muffins and macaroni salad you can make yourself less of a diabetic) - a great trick to figure out what foods to avoid is to check a sugar about 1-2 hours after eating -- foods that bump your sugar above 150 are ones you'll want to think twice about, foods that really spike your sugar you should avoid unless it's a rare treat. -likewise, if you do about 30 minutes of light cardiovascular exercise (taking a walk, pedalling a bike, etc) you can make yourself less insulin resistant for about 12 hours....but then if you do that repeatedly more days than not you also will have that decrease in insulin resistance "stick" as you fundamentally rewrite your metabolism. (in addition to diabetes benefit, exercise is proven to be quite beneficial to help with anxiety as well) Pending Studies at Discharge: No Stand-Alone Forms: [employer], Smoking Cessation Medications and DC Order Prescriptions: New atorvastatin 40 mg Tablet 40 mg PO QAM 30 Days Qty: 30 RF: 1 clonidine HCl 0.1 mg Tablet 0.1 mg PO BID 5 Days Qty: 5 RF: 0 hydroxyzine HCl 25 mg Tablet 50 mg PO BID PRN (Reason: anxiety) 15 Days Qty: 30 RF: 1 quetiapine 100 mg Tablet 100 mg PO TID 30 Days Qty: 90 RF: 1 metformin 500 mg Tablet Extended Release 24 Hr 1,000 mg PO DAILY@1700 30 Days Qty: 60 RF: 1 Invokana 100 mg tablet 100 mg PO DAILY 30 Days Qty: 30 RF: 1 Continued Cogentin 1 mg PO BID RF: 0 Discontinued lorazepam [Ativan] 2 mg tablet 1 mg PO BID RF: 0 haloperidol 10 mg Tablet 10 mg PO BID RF: 0 alprazolam 1 mg tablet 1 mg PO TID Qty: 10 RF: 0 Discharge Orders: Discharge Order (Routine); Ordered 04/14/19 Ordered By: Juan Perry/Other Patient Handouts: Diabetes [place]. Senator Complications, Hyperglycemia, Hypoglycemia, Diabetes Resources, Diabetes Type 2 Coping, Diabetes Healthy Meals, Diabetes Carbs, Diabetes Exercise Benefits, Diabetes Activity Tips, Diabetes Living Life, A1C Admission Data Admit Date/Time: 04/07/19 21:09 Attending Provider: Rema Londono Admit Provider: Kaiden Rodriguez Primary Care Provider: Ez Hargrove Other Providers: Jaye Mckeon ; Kaiden Rodriguez ; Ingrid Tabares ; Lanre Andres Other Interventions: Discharge Summary Assessment (RN) Last Done: 04/14/19 12:02 PSY Interdisciplinary Discharge Planning Last Done: 04/11/19 15:54 DC Date/Time DO NOT enter until pt leaves facility: 04/14/19 12:37 Supervising Physician Co-Signing Physician Notes Resident Physician Supervision Note: I independently interviewed and examined the patient and verified the machado history and physical, reviewed labs and image studies, discussed the case with the resident Dr. Moss and agree with the findings and care plan. Time spent in discharge 35 min Resident Activity Tracking Resident Involvement: Resident Care Provided Care Provided: Adult Hospital Medicine
== END 2019-04-14 12:37 | disposition home or self-care (01) | DRG 918 ==
LOC: ED 10:10 → 1E 21:09 → SUATTDRO 21:09 → 1E 21:48 → 2S 04-08 14:42 → 2N 04-09 17:21